=== PATIENT | male | born 1960 | race Caucasian/White ===

== ENCOUNTER → 2018-12-24 | Outpatient (CLI) | payer OTHER, MEDICARE | END | disposition home or self-care (01) | LOC: LABWHC1 12:18 | DX: B18.2 Chronic viral hepatitis C (principal) | CPT/HCPCS: 36415 ==

== ENCOUNTER → 2019-03-28 | Outpatient (CLI) | payer OTHER, MEDICARE ==
[2019-03-28 12:23] LABS: Basophils % (A) 0 %; Eosinophils # (A) 0.1 k/uL (0-0.7); Eosinophils % (A) 1 %; HCT 40.3 % (39.0-53.0); HGB 14.5 gm/dL (13.0-17.5); Lymphocytes # (A) 0.8 k/uL (1.0-4.8); Lymphocytes % (A) 15 %; MCH 33.6 pg (25.0-35.0); MCHC 35.9 g/dL (31.0-37.0); MCV 93.8 fL (80.0-100.0); Mean Platelet Volume 7.4; Monocytes # (A) 0.3 k/uL (0-1.0); Monocytes % (A) 6 %; Neutrophils # (A) 4.1 k/uL (1.3-7.7); Neutrophils % (A) 76 %; Platelet Count 103 k/uL (150-450); RDW 14.2 % (11.5-15.5); WBC 5.4 k/uL (3.8-10.6)
[2019-03-28 18:48] LABS: Albumin 4.3 g/dL (3.80-4.90); Albumin/Globulin Ratio 1.26 (1.60-3.17); Bilirubin, Conjugated 0.4 mg/dL (0.20-0.40); Bilirubin,Unconjugated 0.6 mg/dL; Globulin 3.4 g/dL (1.6-3.3); Total Protein 7.7 g/dL (6.2-8.2)
[2019-03-31 10:21] LABS: LOG HCV IU/mL 1.43 (<1.08)
== END | disposition home or self-care (01) ==
LOC: LABWHC1 11:16
PROVIDERS: ATTEND Physician Assistant
DX: B18.2 Chronic viral hepatitis C (principal)
CPT/HCPCS: 36415; 80076; 85025; 87522

== ENCOUNTER → 2019-04-24 | Outpatient (CLI) | payer OTHER, MEDICARE ==
[2019-04-24 11:23] LABS: Basophils % (A) 0 %; Eosinophils # (A) 0.1 k/uL (0-0.7); Eosinophils % (A) 1 %; HCT 46.4 % (39.0-53.0); HGB 16.1 gm/dL (13.0-17.5); Lymphocytes # (A) 0.8 k/uL (1.0-4.8); Lymphocytes % (A) 15 %; MCH 32.5 pg (25.0-35.0); MCHC 34.7 g/dL (31.0-37.0); MCV 93.7 fL (80.0-100.0); Mean Platelet Volume 6.8; Monocytes # (A) 0.4 k/uL (0-1.0); Monocytes % (A) 7 %; Neutrophils % (A) 75 %; Platelet Count 108 k/uL (150-450); RBC 4.96 m/uL (4.30-5.90); RDW 12.5 % (11.5-15.5); WBC 5.4 k/uL (3.8-10.6)
[2019-04-24 16:59] LABS: Albumin 4.5 g/dL (3.80-4.90); Albumin/Globulin Ratio 1.22 (1.60-3.17); Bilirubin, Conjugated 0.3 mg/dL (0.20-0.40); Bilirubin,Unconjugated 0.6 mg/dL; Globulin 3.7 g/dL (1.6-3.3); Total Bilirubin 0.9 mg/dL (0.2-1.2); Total Protein 8.2 g/dL (6.2-8.2)
[2019-04-25 14:05] LABS: LOG HCV IU/mL <1.08 (<1.08)
== END | disposition home or self-care (01) ==
LOC: LABWHC1 10:25
PROVIDERS: ATTEND Physician Assistant
DX: B18.2 Chronic viral hepatitis C (principal)
CPT/HCPCS: 36415; 80076; 85025; 87522

== ENCOUNTER → 2019-06-19 | Outpatient (CLI) | payer OTHER, MEDICARE ==
[2019-06-19 14:27] LABS: Basophils % (A) 0 %; Eosinophils % (A) 1 %; HGB 14.2 gm/dL (13.0-17.5); Lymphocytes # (A) 0.9 k/uL (1.0-4.8); Lymphocytes % (A) 21 %; MCH 33.9 pg (25.0-35.0); MCHC 36.4 g/dL (31.0-37.0); Mean Platelet Volume 6.7; Monocytes # (A) 0.2 k/uL (0-1.0); Monocytes % (A) 5 %; Neutrophils # (A) 3.2 k/uL (1.3-7.7); Neutrophils % (A) 72 %; RBC 4.19 m/uL (4.30-5.90); RDW 12.4 % (11.5-15.5); WBC 4.4 k/uL (3.8-10.6)
[2019-06-19 14:42] LABS: Platelet Count 83 k/uL (150-450)
[2019-06-19 18:55] LABS: Albumin 4.4 g/dL (3.80-4.90); Albumin/Globulin Ratio 1.29 (1.60-3.17); Bilirubin, Conjugated 0.4 mg/dL (0.20-0.40); Bilirubin,Unconjugated 0.5 mg/dL; Globulin 3.4 g/dL (1.6-3.3); Total Bilirubin 0.9 mg/dL (0.2-1.2); Total Protein 7.8 g/dL (6.2-8.2)
[2019-06-20 15:49] LABS: Hepatits C Virus RNA Not detected (Not detected); Hepatits C Virus RNA, Quant <12 IU/mL (<12); LOG HCV IU/mL <1.08 (<1.08)
== END | disposition home or self-care (01) ==
LOC: LABWHC1 12:43
PROVIDERS: ATTEND Physician Assistant
DX: B18.2 Chronic viral hepatitis C (principal)
CPT/HCPCS: 36415; 80076; 85025; 87522

== ENCOUNTER → 2019-08-08 | Outpatient (CLI) | payer OTHER, MEDICARE ==
--- NOTE | 2019-08-08 16:58 | CT ---
EXAMINATION TYPE: CT abdomen wo/w con DATE OF EXAM: 08/08/2019 COMPARISON: None INDICATION: Liver disease. DLP: 513.2 mGycm, Automated exposure control for dose reduction was used. CONTRAST: 100ml mL of Isovue 300. Study performed with Oral Contrast TECHNIQUE: Axial images were obtained from above the diaphragm to the pubic rami in the axial plane a t 5 mm thick sections. Reconstructed images are reviewed on the computer in the coronal plane. FINDINGS: Limited CT sections are obtained the lung bases. The lung bases are clear. CT ABDOMEN: Liver: Normal Spleen: Enlarged measuring 20 cm. Pancreas: Normal Adrenal glands: The adrenal glands are normal. Gallbladder: Normal Kidneys: No masses are evident. No hydronephrosis is present. No cysts are present. Delayed images were obtained through the kidneys, which remain unremarkable. Aorta: Dense Vascular calcification is within the aorta. Inferior vena cava: Normal. Loops of bowel within the abdomen and pelvis are normal. There are loops of bowel which are incom pletely distended or lack oral contrast limiting their evaluation. IMPRESSIONS: 1. Marked splenomegaly.
[2019-08-08 17:54] LABS: Albumin 4.7 g/dL (3.5-5.0); Bilirubin, Delta 0.4 mg/dL (0.0-0.2); Bilirubin,Unconjugated 0.8 mg/dL (0.0-1.1); Total Bilirubin 1.2 mg/dL (0.2-1.3); Total Protein 9.1 g/dL (6.3-8.2)
[2019-08-08 18:06] LABS: Prothrombin Time 10.7 sec (9.0-12.0)
[2019-08-08 18:08] LABS: Basophils % (A) 0 %; Eosinophils % (A) 1 %; HCT 42.8 % (39.0-53.0); HGB 15.6 gm/dL (13.0-17.5); Lymphocytes # (A) 0.8 k/uL (1.0-4.8); Lymphocytes % (A) 17 %; MCH 33.3 pg (25.0-35.0); MCHC 36.5 g/dL (31.0-37.0); MCV 91.3 fL (80.0-100.0); Mean Platelet Volume 8.2; Monocytes # (A) 0.3 k/uL (0-1.0); Monocytes % (A) 7 %; Neutrophils # (A) 3.7 k/uL (1.3-7.7); Neutrophils % (A) 75 %; RBC 4.69 m/uL (4.30-5.90); RDW 12.1 % (11.5-15.5)
[2019-08-08 18:49] LABS: Platelet Count 88 k/uL (150-450)
[2019-08-08 23:38] LABS: Alpha Fetoprotein, Tumor Mkr 11.8 ng/mL (0.0-7.9)
[2019-08-09 01:44] LABS: Hepatitis A Antibody IgM Non-Reactive (Non-Reactive); Hepatitis B Core IgM Non-Reactive (Non-Reactive); Hepatitis B Surface Antigen Non-Reactive (Non-Reactive); Hepatitis C IgG Antibody Reactive (Non-Reactive)
== END | disposition home or self-care (01) ==
LOC: RADCTMAIN 14:16
PROVIDERS: ATTEND Internal Medicine Gastroenterology
DX: R16.1 Splenomegaly, not elsewhere classified (principal)
CPT/HCPCS: 87522; 80076; 80074; 85025; 85610; 82105; 74170; 36415; Q9967

== ENCOUNTER 2019-09-15 10:09 | Day surgery (SDC) | payer OTHER, MEDICARE ==
[2019-09-12 14:25] VITALS: BMI 20.3
[2019-09-15] MEDS ORDERED: LACTATED RINGERS 1,000 ML IV ONE (10:45)
[2019-09-15] MEDS ORDERED: LIDOCAINE 1% 20 ML VIAL (10MG/ML) FOR IV START INTRADERMA ONE (10:45)
[2019-09-15 10:50] VITALS: TEMP 97.7
[2019-09-15] MEDS ORDERED: LIDOCAINE 1% INJ 10MG/ML (20 ML MDV) ONE (11:46)
[2019-09-15] MEDS ORDERED: PROPOFOL 10 MG/ML 20 ML VIAL IV ONE (11:46)
--- NOTE | 2019-09-15 12:34 | P.PCN ---
Date of Procedure: 09/15/19 Description of Procedure: Brief history: Patient is a pleasant scheduled for an elective upper endoscopy as well as colonoscopy as a part of evaluation of cirrhosis to rule out varices and for screening for malignant neoplasm of the colon. Denies any prior history of esophageal varices, upper GI bleeds, decompensation with ascites or encephalopathy. Last colonoscopy for screening purposes at the age of 48 was normal per his recollection. Procedure performed: Esophagogastroduodenoscopy with biopsies Colonoscopy with polypectomy Estimated blood loss: Minimal. Preoperative diagnosis: Cirrhosis, screening for malignant neoplasm of the colon, last colonoscopy at 48 Anesthesia: [facility] [place] Procedure: After informed consent was obtained from the patient was brought into the endoscopy unit and IV sedation was administered by anesthesia under continuous monitoring. Initially upper endoscopy was done. The Olympus GF 190 video endoscope was inserted into the mouth and esophagus intubated without any difficulty and was gradually advanced into the stomach and duodenum and carefully examined. The bulb and second part of the duodenum appeared normal, With biopsies taken. The scope was then withdrawn into the stomach adequately insufflated with air and upon careful examination the antrum and body, cardia and fundus appeared normal Was significant for diffuse punctate erythema in the antrum and body suggestive of mild gastritis with biopsies of the antrum and body taken. The scope was then withdrawn into the esophagus. The GE junction was located at 45 cm to the incisors. It appeared regular with no erythema erosions or ulcerations, no varices were noted. Rest of the esophagus appeared normal. Patient tolerated the procedure well. At this time the patient continued to remain sedation. Initial digital rectal examination was normal. Olympus CF 190 video colonoscope was then inserted into the rectum and gradually advanced to the cecum without any difficulty. Careful examination was performed as the scope was gradually being withdrawn. The prep was excellent. The cecum, ascending colon, transverse colon, descending colon, sigmoid colon and rectum appeared normal. small 4 mm cecal polyp removed with cold snare polypectomy. Retroflexion was performed in the rectum and no lesions were noted, low-grade internal hemorrhoids noted. Patient tolerated the procedure well. Impression: 1. Mild gastritis antrum and body, biopsied. Duodenal biopsies. No varices noted. 2. Small cecal polyp removed with cold snare polypectomy. Recommendations: Findings of this examination were discussed with the patient as well as his . Okay to resume diet. Okay to resume medications. Await pathology from biopsies and polypectomy. Would recommend repeat colonoscopy in 5 years for colon polyps pending pathology from polypectomy.
[2019-09-15 12:46] VITALS: BP 121/78; PULSE 73; RESP 16
== END 2019-09-15 13:02 | disposition home or self-care (01) ==
LOC: ORWHC2ENDO 10:09
PROVIDERS: ATTEND Internal Medicine
DX: Z12.11 Encounter for screening for malignant neoplasm of colon (principal); D12.0 Benign neoplasm of cecum; K74.60 Unspecified cirrhosis of liver; K29.50 Unspecified chronic gastritis without bleeding; K64.8 Other hemorrhoids; I99.9 Unspecified disorder of circulatory system; J44.9 Chronic obstructive pulmonary disease, unspecified; Z79.891 Long term (current) use of opiate analgesic; Z79.899 Other long term (current) drug therapy; Z90.49 Acquired absence of other specified parts of digestive tract; Z98.890 Other specified postprocedural states; Z86.19 Personal history of other infectious and parasitic diseases
CPT/HCPCS: 88305; 45385; 43239; J2001; J2704

== ENCOUNTER → 2020-02-20 | Outpatient (CLI) | payer OTHER, MEDICARE ==
[2020-02-20 10:43] LABS: Prothrombin Time 10.1 sec (9.0-12.0)
[2020-02-20 11:14] LABS: Basophils % (A) 0 %; Eosinophils # (A) 0.1 k/uL (0-0.7); Eosinophils % (A) 1 %; HCT 45.2 % (39.0-53.0); HGB 16.4 gm/dL (13.0-17.5); Lymphocytes # (A) 0.9 k/uL (1.0-4.8); Lymphocytes % (A) 15 %; MCH 32.9 pg (25.0-35.0); MCHC 36.3 g/dL (31.0-37.0); MCV 90.6 fL (80.0-100.0); Mean Platelet Volume 7.4; Monocytes # (A) 0.3 k/uL (0-1.0); Monocytes % (A) 4 %; Neutrophils % (A) 79 %; RBC 4.99 m/uL (4.30-5.90); RDW 12.7 % (11.5-15.5); WBC 6.3 k/uL (3.8-10.6)
[2020-02-20 11:22] LABS: Platelet Count 95 k/uL (150-450)
[2020-02-20 15:27] LABS: Alpha Fetoprotein, Tumor Mkr 16.4 ng/mL (0.0-7.9)
[2020-02-20 15:44] LABS: Albumin 4.9 g/dL (3.80-4.90); Albumin/Globulin Ratio 1.26 (1.60-3.17); Bilirubin, Conjugated 0.3 mg/dL (0.20-0.40); Bilirubin,Unconjugated 0.6 mg/dL; Globulin 3.9 g/dL (1.6-3.3); Total Bilirubin 0.9 mg/dL (0.3-1.2); Total Protein 8.8 g/dL (6.2-8.2)
== END | disposition home or self-care (01) ==
LOC: LABWHC1 09:36
PROVIDERS: ATTEND Physician Assistant
DX: B18.2 Chronic viral hepatitis C (principal)
CPT/HCPCS: 36415; 80076; 82105; 85025; 85610; 87522

== ENCOUNTER → 2020-04-08 | Outpatient (CLI) | payer OTHER, MEDICARE | END | disposition home or self-care (01) | LOC: LABPAT 11:51 | PROVIDERS: ATTEND Surgery Plastic and Reconstructive Surgery | DX: Z01.810 Encounter for preprocedural cardiovascular examination (principal) | CPT/HCPCS: 93005 ==

== ENCOUNTER 2020-04-26 13:27 | Observation (INO) | payer OTHER, MEDICARE ==
[2020-04-26] MEDS ORDERED: ASPIRIN 81 MG PO STA (13:35)
[2020-04-26] MEDS ORDERED: NITROGLYCERIN OINT 1 INCH/GM PACKET TOPICAL STA (13:35)
--- NOTE | 2020-04-26 13:49 | ED ---
General Adult HPI - General Stated complaint: SOB Time Seen by Provider: 04/26/20 13:27 Source: patient, RN notes reviewed, old records reviewed - History of Present Illness Initial comments: This is a 59-year-old male who presents emergency Department past medical history significant for smoking. Patient states she was recently told he had an abnormal EKG and he did have a stress test. Patient states she woke up this morning he was very lightheaded short of breath and had some chest pain. Patient describes the chest pain is pressure though he said it wasn't that bad he was concerned. Patient states he continued today became more lightheaded so he decided come to the emergency department. Patient states he still short of breath but not as bad as earlier. Patient states currently is not having any chest pain or pressure. Patient denies any recent fever chills or cough per patient denies any headache patient denies numbness weakness. Patient denies any abdominal pain patient denies nausea vomiting or diarrhea. - Related Data Home Medications Medication Instructions Recorded Confirmed Albuterol Inhaler (Mhu) [Ventolin 1 - 2 puff INHALATION RT-Q6H PRN 09/12/19 09/12/19 Hfa Inhaler] Glycopyrrolate/Formoterol Fum 1 puff INHALATION DAILY 09/12/19 09/12/19 [Bevespi Aerosphere Inhaler] Suboxone(Unknown Dose) SL BID 09/12/19 traMADol HCL [Ultram] 50 mg PO HS 09/12/19 09/12/19 Allergies Allergy/AdvReac Type Severity Reaction Status Date / Time No Known Allergies Allergy Verified 09/15/19 10:22 Review of Systems ROS Statement: Those systems with pertinent positive or pertinent negative responses have been documented in the HPI. ROS Other: All systems not noted in ROS Statement are negative. Past Medical History Past Medical History: COPD, Liver Disease, Vascular Disorder Additional Past Medical History / Comment(s): hx. Hep. C considered cured after tx. History of Any Multi-Drug Resistant Organisms: None Reported Past Surgical History: Appendectomy Additional Past Surgical History / Comment(s): colonoscopy, stent right leg for circulation, mediport & later removed Past Anesthesia/Blood Transfusion Reactions: No Reported Reaction Past Alcohol Use History: None Reported Additional Past Alcohol Use History / Comment(s): 1ppd since teens Past Drug Use History: Opiates Additional Drug Use History / Comment(s): medical marijuana General Exam - General Exam Comments Initial Comments: GENERAL: Patient is well-developed and well-nourished. Patient is nontoxic and well- hydrated and is in mild distress. ENT: Neck is soft and supple. No significant lymphadenopathy is noted. Oropharynx is clear. Moist mucous membranes. Neck has full range of motion without eliciting any pain. EYES: The sclera were anicteric and conjunctiva were pink and moist. Extraocular movements were intact and pupils were equal round and reactive to light. Eyelids were unremarkable. PULMONARY: Unlabored respirations. Good breath sounds bilaterally. No audible rales rhonchi or wheezing was noted. CARDIOVASCULAR: There is a regular rate and rhythm without any murmurs gallops or rubs. ABDOMEN: Soft and nontender with normal bowel sounds. SKIN: Skin is clear with no lesions or rashes and otherwise unremarkable. NEUROLOGIC: Patient is alert and oriented x3. Cranial nerves II through XII are grossly intact. Motor and sensory are also intact. Normal speech, volume and content. Symmetrical smile. MUSCULOSKELETAL: Normal extremities with adequate strength and full range of motion. LYMPHATICS: No significant lymphadenopathy is noted PSYCHIATRIC: Normal psychiatric evaluation. Course Vital Signs 04/26/20 04/26/20 13:39 14:43 Temperature 99.4 F Pulse Rate 52 L 71 Respiratory 18 18 Rate Blood Pressure 152/78 179/100 O2 Sat by Pulse 97 99 Oximetry Medical Decision Making - Medical Decision Making EKG shows sinus bradycardia 53 bpm VT interval 250 QRS is 90 QT of 416 QTC is 3 90. Patient's EKG shows Q waves in 1 and aVL. Chest x-ray shows no acute abnormality. I spoke with Dr. Murguia agreed to admit the patient admitted the patient I consult cardiology I continue aspirin and Nitropaste on the floor. - Lab Data Result diagrams: 04/26/20 13:48 04/26/20 13:48 Lab Results 04/26/20 04/26/20 04/26/20 Range/Units 13:48 13:48 13:48 WBC 10.7 H (3.8-10.6) k/uL RBC 4.65 (4.30-5.90) m/uL Hgb 14.8 (13.0-17.5) gm/dL Hct 41.1 (39.0-53.0) % MCV 88.4 (80.0-100.0) fL MCH 31.9 (25.0-35.0) pg MCHC 36.1 (31.0-37.0) g/dL RDW 12.6 (11.5-15.5) % Plt Count 108 L (150-450) k/uL Neutrophils % 89 % Lymphocytes % 5 % Monocytes % 5 % Eosinophils % 1 % Basophils % 0 % Neutrophils # 9.5 H (1.3-7.7) k/uL Lymphocytes # 0.5 L (1.0-4.8) k/uL Monocytes # 0.5 (0-1.0) k/uL Eosinophils # 0.1 (0-0.7) k/uL Basophils # 0.0 (0-0.2) k/uL PT 10.4 (9.0-12.0) sec INR 1.0 (<1.2) APTT 26.3 (22.0-30.0) sec Sodium 136 L (137-145) mmol/L Potassium 4.2 (3.5-5.1) mmol/L Chloride 104 (98-107) mmol/L Carbon Dioxide 25 (22-30) mmol/L Anion Gap 7 mmol/L BUN 11 (9-20) mg/dL Creatinine 0.60 L (0.66-1.25) mg/dL Est GFR (CKD-EPI)AfAm >90 (>60 ml/min/1.73 sqM) Est GFR (CKD-EPI)NonAf >90 (>60 ml/min/1.73 sqM) Glucose 110 H (74-99) mg/dL Calcium 9.2 (8.4-10.2) mg/dL Magnesium 2.0 (1.6-2.3) mg/dL Total Bilirubin 1.3 (0.2-1.3) mg/dL AST 43 (17-59) U/L ALT 21 (4-49) U/L Alkaline Phosphatase 120 (38-126) U/L Troponin I (0.000-0.034) ng/mL Total Protein 8.3 H (6.3-8.2) g/dL Albumin 4.6 (3.5-5.0) g/dL 04/26/20 Range/Units 13:48 WBC (3.8-10.6) k/uL RBC (4.30-5.90) m/uL Hgb (13.0-17.5) gm/dL Hct (39.0-53.0) % MCV (80.0-100.0) fL MCH (25.0-35.0) pg MCHC (31.0-37.0) g/dL RDW (11.5-15.5) % Plt Count (150-450) k/uL Neutrophils % % Lymphocytes % % Monocytes % % Eosinophils % % Basophils % % Neutrophils # (1.3-7.7) k/uL Lymphocytes # (1.0-4.8) k/uL Monocytes # (0-1.0) k/uL Eosinophils # (0-0.7) k/uL Basophils # (0-0.2) k/uL PT (9.0-12.0) sec INR (<1.2) APTT (22.0-30.0) sec Sodium (137-145) mmol/L Potassium (3.5-5.1) mmol/L Chloride (98-107) mmol/L Carbon Dioxide (22-30) mmol/L Anion Gap mmol/L BUN (9-20) mg/dL Creatinine (0.66-1.25) mg/dL Est GFR (CKD-EPI)AfAm (>60 ml/min/1.73 sqM) Est GFR (CKD-EPI)NonAf (>60 ml/min/1.73 sqM) Glucose (74-99) mg/dL Calcium (8.4-10.2) mg/dL Magnesium (1.6-2.3) mg/dL Total Bilirubin (0.2-1.3) mg/dL AST (17-59) U/L ALT (4-49) U/L Alkaline Phosphatase (38-126) U/L Troponin I 0.016 (0.000-0.034) ng/mL Total Protein (6.3-8.2) g/dL Albumin (3.5-5.0) g/dL Disposition Clinical Impression: Chest pain Disposition: ADMITTED IP TO THIS [facility] Referrals: Deandre Thomas MD [Primary Care Provider] - 1-2 days Time of Disposition: 15:28
--- NOTE | 2020-04-26 14:10 | XR ---
EXAMINATION TYPE: XR chest 2V DATE OF EXAM: 04/26/2020 COMPARISON: Prior chest x-ray 10/12/[address] 10/21/2009 HISTORY: Chest pain TECHNIQUE: Frontal and lateral views of the chest are obtained. FINDINGS: There are prominent lung volumes and overlying cardiac leads. There is no focal air space o pacity, pleural effusion, or pneumothorax seen. The cardiac silhouette size is small. The osseous structures are intact, possible spinal curvature, patient is rotated. IMPRESSION: No acute cardiopulmonary process. There is underlying emphysema.
[2020-04-26 14:13] LABS: Partial Thromboplastin Time 26.3 sec (22.0-30.0); Prothrombin Time 10.4 sec (9.0-12.0)
[2020-04-26 14:17] LABS: Basophils % (A) 0 %; Eosinophils # (A) 0.1 k/uL (0-0.7); Eosinophils % (A) 1 %; HCT 41.1 % (39.0-53.0); HGB 14.8 gm/dL (13.0-17.5); Lymphocytes # (A) 0.5 k/uL (1.0-4.8); Lymphocytes % (A) 5 %; MCH 31.9 pg (25.0-35.0); MCHC 36.1 g/dL (31.0-37.0); MCV 88.4 fL (80.0-100.0); Mean Platelet Volume 7.3; Monocytes # (A) 0.5 k/uL (0-1.0); Monocytes % (A) 5 %; Neutrophils # (A) 9.5 k/uL (1.3-7.7); Neutrophils % (A) 89 %; Platelet Count 108 k/uL (150-450); RBC 4.65 m/uL (4.30-5.90); RDW 12.6 % (11.5-15.5); WBC 10.7 k/uL (3.8-10.6)
[2020-04-26 14:21] LABS: ALT 21 U/L (4-49); AST 43 U/L (17-59); African American GFR (CKD) >90 (>60 ml/min/1.73 sqM); Albumin 4.6 g/dL (3.5-5.0); Alkaline Phosphatase 120 U/L (38-126); Anion Gap 7 mmol/L; Blood Urea Nitrogen 11 mg/dL (9-20); Calcium 9.2 mg/dL (8.4-10.2); Carbon Dioxide 25 mmol/L (22-30); Chloride 104 mmol/L (98-107); Glucose 110 mg/dL (74-99); Non-African American GFR(CKD) >90 (>60 ml/min/1.73 sqM); Sodium 136 mmol/L (137-145); Total Bilirubin 1.3 mg/dL (0.2-1.3); Total Protein 8.3 g/dL (6.3-8.2)
[2020-04-26 14:28] LABS: Potassium 4.2 mmol/L (3.5-5.1)
[2020-04-26] MEDS ORDERED: NITROGLYCERIN SL TABS 0.4 MG TAB SUBLINGUAL PRN (15:32)
[2020-04-26] MEDS ORDERED: ACETAMINOPHEN TAB 500 MG TAB PO STA (15:41)
[2020-04-26] MEDS ORDERED: NA PHOS,M-B/NA PHOS,DI-BA 133 ML ENEMA RECTAL PRN (18:32)
[2020-04-26] MEDS ORDERED: ONDANSETRON 4 MG/2 ML VIAL IVP PRN (18:32)
[2020-04-26] MEDS ORDERED: MELATONIN 3 MG TABLET PO PRN (18:32)
[2020-04-26] MEDS ORDERED: ACETAMINOPHEN TAB 325 MG TAB PO PRN (18:32)
[2020-04-26] MEDS ORDERED: NALOXONE 0.4 MG/ML 1 ML VIAL IV PRN (18:32)
[2020-04-26] MEDS ORDERED: CALCIUM CARBONATE 500 MG CHEWABLE PO PRN (18:32)
[2020-04-26] MEDS ORDERED: MAG HYDROX/AL HYDROX/SIMETH 30 ML CUP PO PRN (18:32)
[2020-04-26] MEDS ORDERED: LACTULOSE 20 GM/30 ML CUP PO PRN (18:32)
--- NOTE | 2020-04-26 18:49 | P.HPIM ---
History of Present Illness H&P Date: 04/26/20 Chief Complaint: Short of breath History of presenting complaint: This is a 59-year-old patient follows with Dr. rubio to [place]. For last few days having increasingly short of breath. Dizzy, feeling hot and cold. No fevers.. Questionable chest pain. No fever no chills. No cough. Some wheezing. Patient just started seeing a forestry extension specialist and was given a beta naun. Patient due for a stress test in due course. Patient has continued to smoke. 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 Patient was seen by the local forestry extension specialist as a preoperative clearance for left inguinal hernia repair. Pending. Patient's at the bedside. Admitted with unstable angina. Review of systems: GEN.: Tired EYES: None HEENT: None NECK: None RESPIRATORY: Shortness of breath and wheezing CARDIOVASCULAR: As above, no edema GASTROINTESTINAL: None GENITOURINARY: None MUSCULOSKELETAL: None LYMPHATICS: None HEMATOLOGICAL: None PSYCHIATRY: None DERMATOLOGICAL: Skin changes right side of the face right arm NEUROLOGICAL: None Past medical history to include: COPD, hepatitis C treated and cured, peripheral artery disease, left inguinal hernia, psoriasis,porphyria cutanea tarda. 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 Denies any recreational drugs. Physical examination: VITAL SIGNS: 99.4, 52, 18, 152/78, 97% on 2 L GENERAL: BMI 21.6, sitting up in bed, slightly anxious. EYES: Pupils equal. Conjunctiva normal. HEENT: Patient has chronic skin changes on the right side of the face. NECK: JVD not raised; masses not palpable. HEART: First and second heart sounds are normal; no edema. LUNGS: Respiratory rate increased, diminished breath sounds prolonged expiration. ABDOMEN: Soft, nontender, liver spleen not palpable, no masses palpable. PSYCH: Alert and oriented x3; mood and affect normal. NEUROLOGICAL: Cranial nerves grossly intact; no facial asymmetry, power and sensation grossly intact. EXTREMITIES: Chronic skin changes on the back of the right hand LYMPHATICS: No lymph nodes palpable in the axilla and neck INVESTIGATIONS, reviewed in the clinical context: White count 10.7 hemoglobin 14.8 platelets 108 potassium 4.2 creatinine 0.60 line troponin I 0.016, 0.029 EKG tracing personally reviewed by me-normal sinus rhythm, flipped T waves in lead 1 aVL and some nonspecific changes in V1 and V2 Chest x-ray film personally reviewed by me-hyperinflation prominent pulmonary artery tubular heart Assessment: -Patient is on multiple symptoms. Patient has though cardiac risk factors including smoking, hypertension, peripheral artery disease. Patient's had questionable chest pain. Would consider unstable angina and rule out the same. -Acute COPD exacerbation in a current smoker -Suspect underlying secondary pulmonary hypertension will check a 2-D echocardiogram -Peripheral arterial disease with a stent in the right leg previously -Chronic nicotine dependence cigarette smoker -porphyria cutanea tarda -Left inguinal hernia pending surgical repair Plan: Patient with aspirin, Nitropaste. Home medications resumed. Patient also put on nebulized bronchodilators. Also had in his steroids. Care was discussed with the patient and at the bedside. Cardiology consulted. Smoke cessation counseling: This was done with the patient. Nicotine patch is being given. More than 3 minutes was spent for this Past Medical History Past Medical History: COPD, Liver Disease, Vascular Disorder Additional Past Medical History / Comment(s): Hepatitis C-treated/cured, skin condition ?purpura with chronic pain especially involving face, PAD, benign cecal polyps, L inguinal hernia. History of Any Multi-Drug Resistant Organisms: None Reported Past Surgical History: Appendectomy Additional Past Surgical History / Comment(s): EGD, colonoscopy, stent right leg for circulation, mediport & later removed Past Anesthesia/Blood Transfusion Reactions: No Reported Reaction Smoking Status: Current every day smoker - Past Family History Father Family Medical History: Cancer Additional Family Medical History / Comment(s): Father of pancreatic cancer at the age of 78yrs. Mother Family Medical History: Renal Disease Medications and Allergies Home Medications Medication Instructions Recorded Confirmed Type Glycopyrrolate/Formoterol Fum 1 puff INHALATION DAILY 09/12/19 04/26/20 History [Bevespi Aerosphere Inhaler] traMADol HCL [Ultram] 100 mg PO BID 09/12/19 04/26/20 History Albuterol Inhaler [Ventolin Hfa 2 puff INHALATION RT-QID 04/26/20 04/26/20 History Inhaler] Aspirin [Page Aspirin EC] 81 mg PO DAILY 04/26/20 04/26/20 History Atorvastatin [Lipitor] 80 mg PO DAILY 04/26/20 04/26/20 History Buprenorphine HCl/Naloxone HCl 1 film SL BID 04/26/20 04/26/20 History [Buprenorp-Nalox 8-2 mg Sl Film] Metoprolol Succinate [Toprol XL] 50 mg PO DAILY 04/26/20 04/26/20 History Nitroglycerin 0.4 mg SL Q5M PRN 04/26/20 04/26/20 History Allergies Allergy/AdvReac Type Severity Reaction Status Date / Time No Known Allergies Allergy Verified 04/26/20 16:17 Physical Exam Vitals: Vital Signs Temp Pulse Resp BP Pulse Ox 04/26/20 16:16 69 18 150/97 98 04/26/20 15:00 75 18 160/93 99 04/26/20 14:43 71 18 179/100 99 04/26/20 13:39 99.4 F 52 L 18 152/78 97 Intake and Output 04/26/20 04/26/20 04/26/20 06:59 14:59 22:59 Other: Weight 66.224 kg 66.224 kg Results CBC & Chem 7: 04/26/20 13:48 04/26/20 13:48 Labs: Abnormal Lab Results - Last 24 Hours (Table) 04/26/20 04/26/20 Range/Units 13:48 13:48 WBC 10.7 H (3.8-10.6) k/uL Plt Count 108 L (150-450) k/uL Neutrophils # 9.5 H (1.3-7.7) k/uL Lymphocytes # 0.5 L (1.0-4.8) k/uL Sodium 136 L (137-145) mmol/L Creatinine 0.60 L (0.66-1.25) mg/dL Glucose 110 H (74-99) mg/dL Total Protein 8.3 H (6.3-8.2) g/dL Thrombosis Risk Factor Assmnt - Choose All That Apply Any of the Below Risk Factors Present?: Yes Each Factor Represents 1 point: Abnormal pulmonary function (COPD) Other Risk Factors: Yes Each Risk Factor Represents 2 Points: Age 61-74 years Other congenital or acquired thrombophilia - If yes, enter type in comment: No Thrombosis Risk Factor Assessment Total Risk Factor Score: 3 Thrombosis Risk Factor Assessment Level: Moderate Risk
[2020-04-26] MEDS: IPRATROPIUM-ALBUTEROL 3 ML NEB INHALATION SCH (19:12)
[2020-04-26] MEDS: NICOTINE 21MG/24HR PATCH TRANSDERM SCH (19:31)
[2020-04-26] MEDS: traMADol 50 MG TAB PO SCH (19:31)
[2020-04-26] MEDS: NITROGLYCERIN OINT 1 INCH/GM PACKET TOPICAL SCH (19:32)
[2020-04-26] MEDS: [UNRECOGNIZED DRUG - OTHER] SUBLINGUAL SCH (19:32)
[2020-04-26] MEDS: BUPRENORPHINE HCL SUBLINGUAL SCH (19:32)
[2020-04-26] MEDS: NALOXONE HCL SUBLINGUAL SCH (19:32)
[2020-04-26] MEDS ORDERED: ALBUTEROL NEBULIZED 2.5 MG/3 ML INHALATION SCH (20:00)
[2020-04-27] MEDS: NITROGLYCERIN OINT 1 INCH/GM PACKET TOPICAL SCH ×3 (00:54→14:10)
[2020-04-27 06:44] LABS: Cholesterol 134 mg/dL (<200); HDL Cholesterol 52 mg/dL (40-60); LDL Cholesterol,Calculated 66 mg/dL (0-99); Triglycerides 81 mg/dL (<150)
[2020-04-27] MEDS ORDERED: FORMOTEROL FUMARATE 20 MCG/2 ML NEBU INHALATION SCH (08:00)
[2020-04-27] MEDS: traMADol 50 MG TAB PO SCH (08:15)
[2020-04-27] MEDS: NICOTINE 21MG/24HR PATCH TRANSDERM SCH (08:17)
[2020-04-27] MEDS ORDERED: ASPIRIN 325 MG TAB PO STA (08:52)
[2020-04-27] MEDS ORDERED: ALPRAZolam 0.5 MG TAB PO PRN (08:52)
[2020-04-27] MEDS ORDERED: SODIUM CHLORIDE 0.9% 1,000 ML in EMPTY BAG 1 BAG IV ONE (08:52)
[2020-04-27] MEDS ORDERED: ALPRAZolam 0.25 MG TAB PO PRN (08:52)
[2020-04-27] MEDS ORDERED: ATORVASTATIN 80 MG TAB PO STA (08:52)
[2020-04-27] MEDS ORDERED: NITROGLYCERIN SL TABS 0.4 MG TAB SUBLINGUAL PRN (08:52)
[2020-04-27] MEDS ORDERED: METOPROLOL SUCCINATE (ER) 50 MG TAB.ER.24H PO SCH (09:00)
[2020-04-27] MEDS ORDERED: ASPIRIN 325 MG TAB PO SCH (09:00)
[2020-04-27] MEDS ORDERED: ATORVASTATIN 80 MG TAB PO SCH (09:00)
[2020-04-27] MEDS ORDERED: ASPIRIN 81 MG PO SCH (09:00)
[2020-04-27] MEDS: IPRATROPIUM 0.5 MG/2.5 ML NEBU INHALATION SCH ×3 (09:04→16:12)
[2020-04-27] MEDS: IPRATROPIUM-ALBUTEROL 3 ML NEB INHALATION SCH ×3 (09:04→16:11)
[2020-04-27 09:32] LABS: Glucose,Whole Blood 124 mg/dL (75-99)
--- NOTE | 2020-04-27 10:41 | P.CRDCN ---
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 Patient had recently been seen by myself approximately one week ago where he was being evaluated for preoperative clearance. He has however been fairly symptomatic over the prior 3 weeks with new onset of dyspnea on exertion with only moderate activity which would improve with rest. He did have some associated chest pressure along with this if he would push too hard. Denies associated nausea, diaphoresis he does continue to smoke daily. He is i nterested in quitting. He does have scarring of his face and hands related to his porphyria. He denies any claudication symptoms however was stented in his iliac artery 7 years ago at [facility]. He does admit to some associated lightheadedness during these episodes. He was started on an aspirin and a beta naun and recommended for outpatient stress testing however he has been having recurrence of symptoms even at rest concerning for unstable angina. He has been concerned that there is something wrong and therefore presented to the emergency department. No history of hematochezia or melena. DIAGNOSTICS EKG reveals sinus bradycardia with a heart rate of 53, nonspecific T-wave inversions in 1 aVL. Chest xray no acute cardiopulmonary process, underlying emphysema. Laboratory reviewed, white blood cell count 10.7, hemoglobin 14.8, platelets 108, sodium 136, creatinine 0.6, troponins negative 3, total cholesterol 134, LDL 66 Current cardiac medications include aspirin 81 mg daily, Toprol 50 mg daily, nitroglycerin when necessary. REVIEW OF SYSTEMS At the time of my exam: CONSTITUTIONAL: Denies fever or chills. CARDIOVASCULAR: +chest pain, +shortness of breath, no orthopnea, PND, +palpitations. RESPIRATORY: Denies cough. GASTROINTESTINAL: Denies abdominal pain, diarrhea, constipation, nausea or vomiting. MUSCULOSKELETAL: Denies myalgias. NEUROLOGIC: Denies numbness, tingling or weakness. ENDOCRINE: Denies fatigue, weight change, polydipsia or polyurina. GENITOURINARY: Denies burning, hematuria or urgency with micturation. HEMATOLOGIC: Denies history of anemia or bleeding. PHYSICAL EXAMINATION Blood pressure 145/88 heart rate 97 afebrile and maintaining oxygen saturation on room air. CONSTITUTIONAL: No apparent distress, diffuse rash with scarring of his face and upper extremities related to his porphyria HEENT: Head is normocephalic. Pupils are equal, round. Sclerae anicteric. Mucous membranes of the mouth are moist. No JVD. No carotid bruit. CHEST EXAMINATION: Lungs are clear to auscultation. No chest wall tenderness is noted on palpation or with deep breathing. HEART EXAMINATION: Regular rate and rhythm. S1, S2 heard. No murmurs, gallops or rub. ABDOMEN: Soft, nontender. Positive bowel sounds. EXTREMITIES: 2+ peripheral pulses, no lower extremity edema and no calf tenderness. NEUROLOGIC EXAMINATION: Patient is awake, alert and oriented x3. ASSESSMENT 1. Increasing dyspnea on exertion and chest pain with significant risk factors including PAD and tobacco abuse. Patient failed outpatient management and discussed options of stress testing versus heart catheterization. Patient very concerned by his symptoms and would like to undergo heart catheterization. 2. Tobacco abuse 3. Peripheral arterial disease with history of stenting of his right common iliac in 2007 at [facility], no current claudication symptoms 4. Essential hypertension with Toprol recently added 5. Sinus bradycardia, possibly related to Toprol, appears asymptomatic 6. Palpitations intermittently PLAN Patient does have multiple risk factors and symptoms worse with activity, improves with rest and somewhat improved after starting Toprol. He also has multiple risk factors including PAD and tobacco abuse area discussed options of heart catheterization versus stress testing and patient would like to undergo heart catheterization. Discussed risks of procedure including bleeding, infection, heart attack, stroke or and patient is understanding and would like to move ahead with this. We will attempt to have this performed today. We will check an echocardiogram to evaluate for LV function and diastology, rule out significant valvular heart disease. Advised tobacco cessation. More recommendations to follow. Past Medical History Past Medical History: COPD, Liver Disease, Vascular Disorder Additional Past Medical History / Comment(s): Hepatitis C-treated/cured, skin condition ?purpura with chronic pain especially involving face, PAD, benign cecal polyps, L inguinal hernia. History of Any Multi-Drug Resistant Organisms: None Reported Past Surgical History: Appendectomy Additional Past Surgical History / Comment(s): EGD, colonoscopy, stent right leg for circulation, mediport & later removed Past Anesthesia/Blood Transfusion Reactions: No Reported Reaction Smoking Status: Current every day smoker - Past Family History Father Family Medical History: Cancer Additional Family Medical History / Comment(s): Father of pancreatic cancer at the age of 78yrs. Mother Family Medical History: Renal Disease Medications and Allergies Home Medications Medication Instructions Recorded Confirmed Type Glycopyrrolate/Formoterol Fum 1 puff INHALATION DAILY 09/12/19 04/26/20 History [Bevespi Aerosphere Inhaler] traMADol HCL [Ultram] 100 mg PO BID 09/12/19 04/26/20 History Albuterol Inhaler [Ventolin Hfa 2 puff INHALATION RT-QID 04/26/20 04/26/20 History Inhaler] Aspirin [Long Aspirin EC] 81 mg PO DAILY 04/26/20 04/26/20 History Atorvastatin [Lipitor] 80 mg PO DAILY 04/26/20 04/26/20 History Buprenorphine HCl/Naloxone HCl 1 film SL BID 04/26/20 04/26/20 History [Buprenorp-Nalox 8-2 mg Sl Film] Metoprolol Succinate [Toprol XL] 50 mg PO DAILY 04/26/20 04/26/20 History Nitroglycerin 0.4 mg SL Q5M PRN 04/26/20 04/26/20 History Allergies Allergy/AdvReac Type Severity Reaction Status Date / Time No Known Allergies Allergy Verified 04/26/20 16:17 Physical Exam Vitals: Vital Signs Temp Pulse Pulse Resp BP BP Pulse Ox 04/27/20 09:18 60 04/27/20 09:04 60 04/27/20 08:19 98.1 F 97 16 145/88 97 04/27/20 03:00 97.9 F 68 18 123/70 96 04/26/20 21:00 97.7 F 60 18 159/71 95 04/26/20 19:20 59 L 04/26/20 19:12 56 L 97 04/26/20 16:16 69 18 150/97 98 04/26/20 15:00 75 18 160/93 99 04/26/20 14:43 71 18 179/100 99 04/26/20 13:39 99.4 F 52 L 18 152/78 97 Intake and Output 04/26/20 04/27/20 04/27/20 22:59 06:59 14:59 Intake Total 450 Balance 450 Intake: Oral 450 Other: Voiding Method Toilet Toilet Toilet # Voids 1 Weight 66.224 kg Results 04/26/20 13:48 04/26/20 13:48 Cardiac Enzymes 04/26/20 04/26/20 04/26/20 Range/Units 13:48 13:48 16:40 AST 43 (17-59) U/L Troponin I 0.016 0.029 (0.000-0.034) ng/mL 04/26/20 Range/Units 19:10 AST (17-59) U/L Troponin I 0.012 (0.000-0.034) ng/mL Coagulation 04/26/20 Range/Units 13:48 PT 10.4 (9.0-12.0) sec APTT 26.3 (22.0-30.0) sec Lipids 04/27/20 Range/Units 05:51 Triglycerides 81 (<150) mg/dL Cholesterol 134 (<200) mg/dL HDL Cholesterol 52 (40-60) mg/dL CBC 04/26/20 Range/Units 13:48 WBC 10.7 H (3.8-10.6) k/uL RBC 4.65 (4.30-5.90) m/uL Hgb 14.8 (13.0-17.5) gm/dL Hct 41.1 (39.0-53.0) % Plt Count 108 L (150-450) k/uL Comprehensive Metabolic Panel 04/26/20 Range/Units 13:48 Sodium 136 L (137-145) mmol/L Potassium 4.2 (3.5-5.1) mmol/L Chloride 104 (98-107) mmol/L Carbon Dioxide 25 (22-30) mmol/L BUN 11 (9-20) mg/dL Creatinine 0.60 L (0.66-1.25) mg/dL Glucose 110 H (74-99) mg/dL Calcium 9.2 (8.4-10.2) mg/dL AST 43 (17-59) U/L ALT 21 (4-49) U/L Alkaline Phosphatase 120 (38-126) U/L Total Protein 8.3 H (6.3-8.2) g/dL Albumin 4.6 (3.5-5.0) g/dL Current Medications Generic Name Dose Route Start Last Admin Trade Name Freq PRN Reason Stop Dose Admin Acetaminophen 650 mg 04/26/20 18:32 Tylenol Tab PO Q6HR PRN Mild Pain or Fever > 100.5 Al Hydroxide/Mg Hydroxide 15 ml 04/26/20 18:32 Maalox PO Q6HR PRN Indigestion Albuterol/Ipratropium 3 ml 04/26/20 20:00 04/27/20 09:04 Duoneb 0.5 Mg-3 Mg/3 Ml Soln INHALATION 3 ml RT-QID SHAYY Administration Alprazolam 0.25 mg 04/27/20 08:52 Xanax PO Q6HR PRN Mild Anxiety Alprazolam 0.5 mg 04/27/20 08:52 Xanax PO Q6HR PRN Moderate Anxiety Aspirin 81 mg 04/27/20 09:00 04/27/20 08:15 Aspirin PO 81 mg DAILY SHAYY Administration Atorvastatin Calcium 80 mg 04/27/20 09:00 04/27/20 08:15 Lipitor PO 80 mg DAILY SHAYY Administration Calcium Carbonate/Glycine 1,000 mg 04/26/20 18:32 Tums PO Q4HR PRN Dyspepsia Formoterol Fumarate 20 mcg 04/27/20 08:00 04/27/20 09:03 Perforomist INHALATION 20 mcg RT-BID SHAYY Administration Sodium Chloride 1,000 ml/ IV 1,000 mls @ 66.224 mls/hr 04/27/20 08:52 04/27/20 09:27 Solution IV 04/27/20 23:58 66.224 mls/hr .Q15H7M ONE Administration 1 ML/KG/HR Ipratropium Scribner 0.5 mg 04/27/20 08:00 04/27/20 09:04 Atrovent Nebulized INHALATION Not Given RT-QID [facility] Lactulose 20 gm 04/26/20 18:32 Cephulac PO DAILY PRN Constipation Melatonin 3 mg 04/26/20 18:32 Melatonin PO HS PRN Insomnia Metoprolol Succinate 50 mg 04/27/20 09:00 04/27/20 09:26 Toprol Xl PO 50 mg DAILY SHAYY Administration Naloxone HCl 0.2 mg 04/26/20 18:32 Narcan IV Q2M PRN Opioid Reversal Nicotine 1 patch 04/26/20 18:45 04/27/20 08:17 Habitrol 21mg/24hr Patch TRANSDERM 1 patch DAILY SHAYY Administration Nitroglycerin 0.4 mg 04/26/20 15:32 Nitrostat SUBLINGUAL Q5M PRN Chest Pain Nitroglycerin 1 inch 04/26/20 18:00 04/27/20 06:27 Nitro-Bid Oint TOPICAL Not Given Q6HR [facility] Nitroglycerin 0.4 mg 04/27/20 08:52 Nitrostat SUBLINGUAL Q5M PRN Chest Pain Non-Formulary Medication 1 film 04/26/20 21:00 04/26/20 19:32 Buprenorphine Hcl/Naloxone Hcl [Buprenorp-Nalox 8-2 Mg Sl Film] SUBLINGUAL Not Given BID [facility] Ondansetron HCl 4 mg 04/26/20 18:32 Zofran IVP Q8HR PRN Nausea And Vomiting Sodium Biphosphate/Sodium Phosphate 133 ml 04/26/20 18:32 Fleet Adult RECTAL 05/03/20 18:33 ONCE PRN Constipation Tramadol HCl 100 mg 04/26/20 21:00 04/27/20 08:15 Ultram PO 100 mg BID SHAYY Administration Intake and Output 04/26/20 04/27/20 04/27/20 22:59 06:59 14:59 Intake Total 450 Balance 450 Intake: Oral 450 Other: Voiding Method Toilet Toilet Toilet # Voids 1 Weight 66.224 kg 04/26/20 13:48 04/26/20 13:48
[2020-04-27 12:39] VITALS: PULSE 61
[2020-04-27] MEDS ORDERED: VERAPAMIL 2.5 MG/ML 2 ML AMP ONE (13:38)
[2020-04-27] MEDS ORDERED: LIDOCAINE 1% INJ 10MG/ML (20 ML MDV) ONE (13:38)
[2020-04-27] MEDS ORDERED: HEPARIN SODIUM 1,000 UN/ML (10ML VL) ONE (13:38)
[2020-04-27] MEDS ORDERED: IV FLUID CONTINUATION 1,000 ML IV ONE (13:53)
[2020-04-27] MEDS ORDERED: fentaNYL (PF) 50 MCG/ML 2 ML AMP ONE (13:55)
[2020-04-27] MEDS ORDERED: fentaNYL (PF) 50 MCG/ML 2 ML AMP IV ONE (13:59)
[2020-04-27] MEDS ORDERED: MIDAZOLAM 2 MG/2 ML VIAL IV ONE (13:59)
[2020-04-27] MEDS ORDERED: LIDOCAINE 1% INJ 10MG/ML (20 ML MDV) SQ ONE (14:00)
[2020-04-27] MEDS: VERAPAMIL SYRINGE (5 MG/10 ML) INTRAARTER ONE ×2 (14:02→14:17)
[2020-04-27] MEDS: BUPRENORPHINE HCL SUBLINGUAL SCH (14:10)
[2020-04-27] MEDS: [UNRECOGNIZED DRUG - OTHER] SUBLINGUAL SCH (14:10)
[2020-04-27] MEDS: NALOXONE HCL SUBLINGUAL SCH (14:10)
[2020-04-27] MEDS ORDERED: IOPAMIDOL-370 125ML BTL INJ ONE (14:16)
[2020-04-27] MEDS ORDERED: RX INFO: IV CONTRAST WAS GIVEN 1 EACH MISC MISCELLANE PRN (14:21)
[2020-04-27] MEDS ORDERED: [UNRECOGNIZED DRUG - OTHER] SUBLINGUAL ONE (14:45)
[2020-04-27] MEDS ORDERED: NALOXONE HCL SUBLINGUAL ONE (14:45)
[2020-04-27] MEDS ORDERED: BUPRENORPHINE HCL SUBLINGUAL ONE (14:45)
[2020-04-27 15:11] VITALS: TEMP 98
--- NOTE | 2020-04-27 16:55 | ECHOF ---
Referral Reason:Possible secondary pulmonary hypertension MEASUREMENTS -------- HEIGHT: 175.3 cm WEIGHT: 66.2 kg BP: 145/88 RVIDd: 3.2 cm (< 3.3) IVSd: 1.1 cm (0.6 - 1.1) LVIDd: 3.7 cm (3.9 - 5.3) LVPWd: 1.0 cm (0.6 - 1.1) IVSs: 1.4 cm LVIDs: 2.7 cm LVPWs: 1.5 cm LA Diam: 2.2 cm (2.7 - 3.8) LAESV Index (A-L): 20.75 ml/m Ao Diam: 3.4 cm (2.0 - 3.7) AV Cusp: 1.8 cm (1.5 - 2.6) MV EXCURSION: 19.197 mm (> 18.000) MV EF SLOPE: 77 mm/s (70 - 150) EPSS: 1.1 cm MV E Terrence: 0.76 m/s MV DecT: 251 ms MV A Terrence: 0.72 m/s MV E/A Ratio: 1.05 RAP: 5.00 mmHg RVSP: 17.61 mmHg FINDINGS -------- Sinus rhythm. This was a technically adequate study. The left ventricular size is normal. Left ventricular wall thickness is normal. Overall left vent ricular systolic function is normal with, an EF between 55 - 60 %. The right ventricle is normal in size. Normal LA size by volume 22+/-6 ml/m2. The right atrium is normal in size. Interatrial and interventricular septum intact. There is mild aortic valve sclerosis. The mitral valve is normal. Trace tricuspid regurgitation present. Right ventricular systolic pressure is normal at < 35 mmHg. Trace/mild (physiologic) pulmonic regurgitation. The aortic root size is normal. Normal inferior vena cava with normal inspiratory collapse consistent with estimated right atrial pre ssure of 5 mmHg. There is no pericardial effusion. CONCLUSIONS -------- 1. The left ventricular size is normal. 2. Left ventricular wall thickness is normal. 3. Overall left ventricular systolic function is normal with, an EF between 55 - 60 %. 4. There is mild aortic valve sclerosis. 5. Trace tricuspid regurgitation present. 6. Trace/mild (physiologic) pulmonic regurgitation. 7. There is no pericardial effusion. AQUATICS MANAGER: Gayatri Rodriguez RDCS
[2020-04-27 17:15] VITALS: RESP 16
[2020-04-27 18:15] VITALS: BP 123/54
--- NOTE | 2020-04-27 21:44 | P.CARDCATH ---
Date of Procedure: 04/27/20 Preoperative Diagnosis: Chest pain concerning for unstable angina Postoperative Diagnosis: Same Anesthesia: regional, local Condition: stable Description of Procedure: Procedure performed: Left heart catheterization with bilateral coronary angiography, left ventriculography Procedure performed by: Dr. Rohith Bob Date of procedure: 04/27/2020 Conscious sedation: Under the direct supervision of myself, continuous conscious sedation was administered by me for a total of 20 minutes with Versed and fentanyl. History: Patient is a pleasant 59-year-old male with history of porphyria, tobacco abuse, peripheral arterial disease status post right iliac stenting who presented with new onset of worsening shortness of breath mainly associated with exertion along with some chest pain over the last 3 weeks. Due to patient's medical history and somewhat typical symptoms a heart catheterization was offered to patient to further assess. Description of procedure: After the risks, benefits and alternatives of the above mentioned procedure was explained in detail to the patient, informed consent was obtained. The patient was brought to the catheterization laboratory and prepped and draped in the usual fashion. Patient received sedation with Versed and fentanyl. 2% lidocaine was used to anesthetize the right radial area. A 6 Danish right radial sheath was placed using Seldinger technique. Left and right coronary angiography was performed using a 6 Danish FL 3.5 and FR 5 diagnostic catheter respectively. Next a 6 Danish angled pigtail catheter was advanced into the left ventricle and pressure measurements were obtained. Left ventriculography was performed in the CROWE projection. Pullback across the aortic valve was performed. The pigtail catheter was removed and then the right radial sheath was removed with a TR band placed and hemostasis achieved. The patient tolerated the procedure well and was transferred to the post catheterization holding area in stable condition. Coronary angiography: Left main: Left main is a large caliber vessel which bifurcates into the LAD and circumflex. There is no significant stenosis. LAD: LAD is a large-caliber vessel which wraps around the apex and gives off a moderate caliber diagonal branch. There are mild luminal irregularities of the LAD. Circumflex: The circumflex is a moderate caliber vessel which gives off 2 obtuse marginal branches. There is no significant stenosis. RCA: RCA is a large-caliber dominant vessel which bifurcates into the PDA and PLV branch. There is no significant stenosis. Left ventriculography: Left ventricular ejection fraction is 60% without wall motion abnormalities. There is no significant mitral regurgitation. There is no significant gradient with pullback across the aortic valve. LV 122/2 LVEDP 9 Assessment: 1. Normal coronary arteries with only mild luminal irregularities of the LAD 2. Normal ejection fraction 60% without wall motion abnormalities Plan: 1. Aggressive risk factor modification per most recent ACC/AHA guidelines. 2. Tobacco cessation encouraged 3. Consider other workup of patient's shortness breath and chest pains.
--- NOTE | 2020-04-27 23:06 | P.DS ---
Providers Date of admission: 04/26/20 15:32 Expected date of discharge: 04/27/20 Attending physician: Dre Baltazar Consults: 04/26/20 15:32 Consult Physician Urgent Consulting Provider: [facility] Consult Reason/Comments: Chest pain Do you want consulting provider notified?: Yes Primary care physician: Deandre Thomas [facility] Course: Chief Complaint: Short of breath History of presenting complaint: This is a 59-year-old patient follows with Dr. thomas to [place]. For last few days having increasingly short of breath. Dizzy, feeling hot and cold. No fevers.. Questionable chest pain. No fever no chills. No cough. Some wheezing. Patient just started seeing a lining marker and was given a beta naun. Patient due for a stress test in due course. Patient has continued to smoke. 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 Patient was seen by the local lining marker as a preoperative clearance for left inguinal hernia repair. Pending. Patient's at the bedside. Admitted with unstable angina. today-underwent cardiac catheterization. Order normal coronaries. Was also treated for COPD exacerbation. Counseled about smoking. Consultation: Dr. Bob from cardiology Physical examination: VITAL SIGNS: 99.4, 52, 18, 152/78, 97% on 2 L GENERAL: BMI 21.6, sitting up in bed, slightly anxious. EYES: Pupils equal. Conjunctiva normal. HEENT: Patient has chronic skin changes on the right side of the face. NECK: JVD not raised; masses not palpable. HEART: First and second heart sounds are normal; no edema. LUNGS: Respiratory rate increased, diminished breath sounds prolonged expirat ion. ABDOMEN: Soft, nontender, liver spleen not palpable, no masses palpable. PSYCH: Alert and oriented x3; mood and affect normal. NEUROLOGICAL: Cranial nerves grossly intact; no facial asymmetry, power and sensation grossly intact. EXTREMITIES: Chronic skin changes on the back of the right hand LYMPHATICS: No lymph nodes palpable in the axilla and neck INVESTIGATIONS, reviewed in the clinical context: White count 10.7 hemoglobin 14.8 platelets 108 potassium 4.2 creatinine 0.60 line troponin I 0.016, 0.029 EKG tracing personally reviewed by me-normal sinus rhythm, flipped T waves in lead 1 aVL and some nonspecific changes in V1 and V2 Chest x-ray film personally reviewed by me-hyperinflation prominent pulmonary artery tubular heart cardiac catheterization-normal coronaries 2-D echocardiogram-EF 55-60% Assessment: -chest pain-possibly muscular skeletal, POA -Acute COPD exacerbation in a current smoker, POA -Suspect underlying secondary pulmonary hypertension will check a 2-D echocardiogram -Peripheral arterial disease with a stent in the right leg previously -Chronic nicotine dependence cigarette smoker -porphyria cutanea tarda -Left inguinal hernia pending surgical repair disposition: Home Patient Condition at Discharge: Stable Plan - Discharge Summary Discharge Rx Participant: No New Discharge Prescriptions: New Nicotine 21Mg/24Hr Patch [Habitrol] 1 patch TRANSDERM DAILY #14 patch Continue traMADol HCL [Ultram] 100 mg PO BID Glycopyrrolate/Formoterol Fum [Bevespi Aerosphere Inhaler] 1 puff INHALATION DAILY Nitroglycerin 0.4 mg SL Q5M PRN PRN Reason: chest pain Metoprolol Succinate [Toprol XL] 50 mg PO DAILY Atorvastatin [Lipitor] 80 mg PO DAILY Buprenorphine HCl/Naloxone HCl [Buprenorp-Nalox 8-2 mg Sl Film] 1 film SL BID Albuterol Inhaler [Ventolin Hfa Inhaler] 2 puff INHALATION RT-QID Aspirin [[place] Aspirin EC] 81 mg PO DAILY Discharge Medication List Glycopyrrolate/Formoterol Fum [Bevespi Aerosphere Inhaler] 1 puff INHALATION DAILY 09/12/19 [History] traMADol HCL [Ultram] 100 mg PO BID 09/12/19 [History] Albuterol Inhaler [Ventolin Hfa Inhaler] 2 puff INHALATION RT-QID 04/26/20 [History] Aspirin [[place] Aspirin EC] 81 mg PO DAILY 04/26/20 [History] Atorvastatin [Lipitor] 80 mg PO DAILY 04/26/20 [History] Buprenorphine HCl/Naloxone HCl [Buprenorp-Nalox 8-2 mg Sl Film] 1 film SL BID 04/26/20 [History] Metoprolol Succinate [Toprol XL] 50 mg PO DAILY 04/26/20 [History] Nitroglycerin 0.4 mg SL Q5M PRN 04/26/20 [History] Nicotine 21Mg/24Hr Patch [Habitrol] 1 patch TRANSDERM DAILY #14 patch 04/27/20 [Rx] Follow up Appointment(s)/Referral(s): Rohith Bob DO [STAFF PHYSICIAN] - 05/06/20 1:15 pm Deandre Thomas MD [Primary Care Provider] - 04/30/20 10:30 am Patient Instructions/Handouts: *Surgery [facility] - After Heart Catheterization - [facility] Instructions Discharge Disposition: HOME SELF-CARE
== END 2020-04-27 18:40 | disposition home or self-care (01) ==
LOC: EC 13:27 → 3NCARDOBS 15:32
PROVIDERS: ADMIT Hospitalist; ATTEND Hospitalist
DX: R07.89 Other chest pain (principal); B19.20 Unspecified viral hepatitis C without hepatic coma; E80.1 Porphyria cutanea tarda; F17.210 Nicotine dependence, cigarettes, uncomplicated; I10 Essential (primary) hypertension; I73.9 Peripheral vascular disease, unspecified; J44.1 Chronic obstructive pulmonary disease with (acute) exacerbation; K40.90 Unilateral inguinal hernia, without obstruction or gangrene, not specified as recurrent; Z79.82 Long term (current) use of aspirin; Z79.899 Other long term (current) drug therapy; Z95.820 Peripheral vascular angioplasty status with implants and grafts; L40.9 Psoriasis, unspecified; R42 Dizziness and giddiness
CPT/HCPCS: 93005 ×2; 99285; 36415; 94640 ×3; 94760; 93306; 93458; 80061; 80053; 83735; 84484; 85025; 85610; 85730; 71046; G0378 ×2; C1769; C1894; S4990 ×2; J2250; J2001; J3010; J1644; Q9967

== ENCOUNTER → 2020-05-27 | Day surgery (SDC) | payer OTHER, MEDICARE ==
[2020-05-25 10:53] VITALS: BMI 21.4
[~2020-05-27] MED LIST: ACETAMINOPHEN TAB 325 MG TAB PO PRN; ACETAMINOPHEN TAB 500 MG TAB ONE; ACETAMINOPHEN TAB 500 MG TAB PO ONE; BUPIVACAINE (PF) 0.5% 30 ML VIAL SQ ONE; DEXAMETHASONE SOD PHOSPHATE 10 MG/ML 1 ML VIAL IV ONE; GABAPENTIN 300 MG CAP PO STA; GLYCOPYRROLATE 0.2 MG/ML 2 ML VIAL ONE; HEPARIN SODIUM,PORCINE 5,000 UNIT/ML 1 ML VIAL SQ ONE; HYDROmorphone (PF) 1 MG/ML ONE; LACTATED RINGERS 1,000 ML IV ONE; LIDOCAINE 1% (10MG/ML) FOR IV START INTRADERMA ONE; NEOSTIGMINE 1 MG/ML 10 ML VIAL ONE; ONDANSETRON 4 MG/2 ML VIAL IVP ONE; PHENYLEPHRINE-0.9% NACL SYG 1 MG/10 ML SYRINGE ONE; PROPOFOL 10 MG/ML 20 ML VIAL IV ONE; ROCURONIUM BROMIDE 10 MG/ML 5 ML VIAL IV ONE; SUCCINYLCHOLINE CHLORIDE 100 MG/5 ML SYR IV ONE; TAMSULOSIN 0.4 MG CAP.ER.24H PO STA; fentaNYL (PF) 50 MCG/ML 2 ML AMP ONE
--- NOTE | 2020-05-27 06:56 | P.GSHP ---
History of Present Illness H&P Date: 05/27/20 CHIEF COMPLAINT: Inguinal hernia, left HISTORY OF PRESENT ILLNESS: The patient is a 60-year-old male who presents with a history of swelling and pain along the left groin. He's noted increased swelling including pain of the area. Now he presents for repair of his inguinal hernia. PAST MEDICAL HISTORY: Please see list. PAST SURGICAL HISTORY: Please see list. MEDICATIONS: Please see list. ALLERGIES: Please see list. SOCIAL HISTORY: No illicit drug use FAMILY HISTORY: No reports of Crohn disease or ulcerative colitis. REVIEW OF ORGAN SYSTEMS: CONSTITUTIONAL: No reports of fevers or chills. GI: Denies any blood in stools or constipation. PHYSICAL EXAM: VITAL SIGNS: Stable GENERAL: Well-developed pleasant male in no acute distress. HEENT: No scleral icterus. Extraocular movements grossly intact. Moist buccal mucosa. NECK: Supple without lymphadenopathy. CHEST: Unlabored respirations. Equal bilateral excursions. CARDIOVASCULAR: Regular rate and rhythm. Distal 2+ pulses. ABDOMEN: Soft, nondistended. No peritoneal signs. Palpable defect of the left groin. MUSCULOSKELETAL: No clubbing, cyanosis, or edema. ASSESSMENT: 1. Inguinal hernia, left PLAN: 1. Recommend proceeding with a robotic inguinal repair with mesh with possible bilateral approach. 2. Benefits and risks of surgical intervention was discussed including possibility of open technique. 3. DVT prophylaxis. 4. Antibiotic prophylaxis. Past Medical History Past Medical History: COPD, Liver Disease, Vascular Disorder Additional Past Medical History / Comment(s): Hepatitis C-treated/cured, skin condition ?purpura with chronic pain especially involving face, PAD, benign cecal polyps, L inguinal hernia. History of Any Multi-Drug Resistant Organisms: None Reported Past Surgical History: Appendectomy, Heart Catheterization Additional Past Surgical History / Comment(s): EGD, colonoscopy, stent right leg for circulation, mediport & later removed Past Anesthesia/Blood Transfusion Reactions: No Reported Reaction Smoking Status: Former smoker - Past Family History Father Family Medical History: Cancer Additional Family Medical History / Comment(s): Father of pancreatic cancer at the age of 78yrs. Mother Family Medical History: Renal Disease Medications and Allergies Home Medications Medication Instructions Recorded Confirmed Type Glycopyrrolate/Formoterol Fum 2 puff INHALATION BID 09/12/19 05/25/20 History [Bevespi Aerosphere Inhaler] traMADol HCL [Ultram] 50 mg PO BID 09/12/19 05/25/20 History Albuterol Inhaler [Ventolin Hfa 2 puff INHALATION RT-QID 04/26/20 05/25/20 History Inhaler] Aspirin [[place] Aspirin EC] 81 mg PO DAILY 04/26/20 05/25/20 History Buprenorphine HCl/Naloxone HCl 1 film SL BID 04/26/20 05/25/20 History [Buprenorp-Nalox 8-2 mg Sl Film] Nicotine 14Mg/24Hr Patch [Habitrol 1 patch TRANSDERM DAILY 05/25/20 05/25/20 History 14Mg/24Hr Patch] Allergies Allergy/AdvReac Type Severity Reaction Status Date / Time ibuprofen [From Motrin] AdvReac Nausea & Verified 05/25/20 10:36 Vomiting
[2020-05-27 10:16] VITALS: RESP 16
[2020-05-27 10:48] LABS: Basophils % (A) 0 %; Eosinophils # (A) 0.1 k/uL (0-0.7); Eosinophils % (A) 2 %; HCT 40.9 % (39.0-53.0); HGB 14.4 gm/dL (13.0-17.5); Hyperchromasia Slight; Lymphocytes # (A) 0.8 k/uL (1.0-4.8); Lymphocytes % (A) 13 %; MCH 31.6 pg (25.0-35.0); MCHC 35.2 g/dL (31.0-37.0); MCV 89.8 fL (80.0-100.0); Monocytes # (A) 0.3 k/uL (0-1.0); Monocytes % (A) 5 %; Neutrophils # (A) 4.8 k/uL (1.3-7.7); Neutrophils % (A) 79 %; RBC 4.55 m/uL (4.30-5.90); WBC 6.1 k/uL (3.8-10.6)
[2020-05-27 11:51] LABS: Platelet Count 98 k/uL (150-450)
[2020-05-27 15:04] VITALS: TEMP 98.1
[2020-05-27] MEDS: HYDROmorphone 0.5 MG/0.5 ML SYRINGE IVP PRN ×3 (15:24→16:19)
[2020-05-27] MEDS: LACTATED RINGERS 1,000 ML IV SCH ×2 (15:49→17:22)
--- NOTE | 2020-05-27 15:55 | P.OP ---
Date of Procedure: 05/27/20 Description of Procedure: SURGEON: ALEXA GROVER MD PREOPERATIVE DIAGNOSES: 1. Initial left inguinal hernia. 2. Chronic obstructive pulmonary disease 3. Pre-existing history of tobacco abuse disorder 4. History of hepatitis C 5. Generalized anxiety disorder 6. Porphyria cutanea tarda 7. Psoriasis 8. Peripheral artery disease 9. Pre-existing obstructive uropathy POSTOPERATIVE DIAGNOSES: 1. Initial left inguinal hernia, direct 2. Chronic obstructive pulmonary disease 3. Pre-existing history of tobacco abuse disorder 4. History of hepatitis C 5. Generalized anxiety disorder 6. Porphyria cutanea tarda 7. Psoriasis 8. Peripheral artery disease 9. Initial right inguinal hernia, direct 10. Right inguinal lipoma 11. Pre-existing obstructive uropathy OPERATION: 1. Robotic-assisted da Mary Xi laparoscopic repair of initial incarcerated right direct inguinal hernia with mesh, 11.[address] 2. Robotic-assisted da Mary Xi laparoscopic repair of initial incarcerated left direct inguinal hernia with mesh, 11.[address] 3. Resection of incarcerated right inguinal lipoma, 2 cm ANESTHESIA: General with local anesthetic ESTIMATED BLOOD LOSS: 5 mL. SPECIMENS: 1. Incarcerated right inguinal hernia COMPLICATIONS: None. FINDINGS: 1. Incarcerated initial right inguinal hernia, 3 cm, direct 2. Left inguinal hernia, 2 cm, direct INDICATIONS: The patient is a 60-year-old gentleman who presents with history of right inguinal hernia. For optimal perioperative management, patient was asked to discontinue tobacco use and he had done so and quit for at least 30 days. Now presents for definitive surgical intervention. Laparoscopic versus open and robotic approaches were discussed. Benefits and risks including bleeding, infection, injury to the vas deferens as well as sterility and chronic groin pain were reviewed. Placement of mesh was also described. Informed consent was obtained. DESCRIPTION: In the preoperative area, the patient was marked with indelible marker along the inguinal hernia. The patient was brought to the operating room and initially laid in supine position. The abdomen had been prepped and draped in standard sterile fashion. Ioban draping was also placed. Prior to incision, a timeout protocol was confirmed with surgical team regarding patient's name including procedures to be performed and location along the left groin. Initial positioning for the robotic assisted ports were selected whereby 20 cm superior to the target anatomy, 0 degree 5 mm laparoscopic trocar entry was performed at the left upper quadrant. The abdomen was insufflated to 15 mmHg which he had tolerated well. Diagnostic laparoscopy demonstrated no injury to bowel, viscera or mesentery. A defect along the left groin with a large defect along the right identified. Next, along the epigastrium, 8 mm robot trocar was placed. An 8-mm robotic trocar was placed under direct visualization at the right upper quadrant. An 8 mm port was placed at the left upper quadrant. All trocars were positioned between 10-cm apart from each other. The [employer] XI robot was primed, draped, prepared for docking along upper abdomen of the patient. The patient was positioned 16 steep Trendelenburg position I then went to the [employer] Xi console. The commissary assistant was at bedside for exchange of the robot arms and equipment. The left indirect inguinal hernia sac was evaginated whereby the peritoneum was scored using Endo scissors with cautery. Once completely reduced into the abdominal cavity, the peritoneal sac of the hernia was stripped. The sac was resected and then passed off for further pathological analysis. The size of the hernia defect was 2 cm with intraoperative films obtained. Using a 2-0 VLOC, the peritoneal defect of the left inguinal hernia sites was closed using a running suture separately. The defect was found to be completely closed with complete reduction of the left direct inguinal hernia were confirmed. As an onlay, an 11.[address] mesh by [place] was initially cut in half and entered into the abdominal cavity via the 8 mm trocar. The mesh was tacked to the pelvis using nonabsorbable 2-0 VLOC 9-inch length sutures. Next, careful attention along the right groin demonstrated an incarcerated left inguinal hernia, over 2 cm. A direct inguinal hernia was confirmed. The right inguinal hernia sac was evaginated whereby the peritoneum was scored using Endo scissors with cautery. Once completely reduced into the abdominal cavity, the peritoneal sac of the hernia was stripped along a tightly incarcerated inguinal hernia involving a 2-cm right inguinal lipoma. The lipoma and sac was resected and then passed off for further pathological analysis. The size of the hernia defect was 3 cm with intraoperative films obtained. Using a 2-0 VLOC, the peritoneal defect of the right inguinal hernia site was closed using a running suture. The defect was found to be completely closed with complete reduction of the right direct inguinal hernia was confirmed. As an onlay, an 11.[address] mesh by [place] was initially cut in half and entered into the abdominal cavity via the 8 mm trocar. The mesh was tacked to the pelvis using nonabsorbable 2-0 VLOC 9-inch length sutures. The robot was undocked from the patient's bedside. I then rescrubbed into the case. Insufflation was released from the abdominal cavity and all instruments were removed from the abdominal cavity. The rest of incisions were reapproximated using 4-0 Monocryl in a running subcuticular fashion. Local anesthetic was placed along the incision including for a bilateral groin block. Incisions were cleansed using dilute hydrogen peroxide. Liquid glue was applied to the skin. At the end of the procedure, the needle, sponge and instrument counts had been verified correct by the rn surgical pcu. The patient had tolerated the procedure well and was taken to the postanesthesia care unit in stable condition. Plan - Discharge Summary Discharge Rx Participant: No New Discharge Prescriptions: New Acetaminophen Tab [Tylenol Tab] 500 mg PO Q6H PRN #30 tablet PRN Reason: Pain Continue traMADol HCL [Ultram] 50 mg PO BID Glycopyrrolate/Formoterol Fum [Bevespi Aerosphere Inhaler] 2 puff INHALATION BID Buprenorphine HCl/Naloxone HCl [Buprenorp-Nalox 8-2 mg Sl Film] 1 film SL BID Albuterol Inhaler [Ventolin Hfa Inhaler] 2 puff INHALATION RT-QID Aspirin [[place] Aspirin EC] 81 mg PO DAILY Nicotine 14Mg/24Hr Patch [Habitrol] 1 patch TRANSDERM DAILY Discharge Medication List Glycopyrrolate/Formoterol Fum [Bevespi Aerosphere Inhaler] 2 puff INHALATION BID 09/12/19 [History] traMADol HCL [Ultram] 50 mg PO BID 09/12/19 [History] Albuterol Inhaler [Ventolin Hfa Inhaler] 2 puff INHALATION RT-QID 04/26/20 [History] Aspirin [[place] Aspirin EC] 81 mg PO DAILY 04/26/20 [History] Buprenorphine HCl/Naloxone HCl [Buprenorp-Nalox 8-2 mg Sl Film] 1 film SL BID 04/26/20 [History] Nicotine 14Mg/24Hr Patch [Habitrol] 1 patch TRANSDERM DAILY 05/25/20 [History] Acetaminophen Tab [Tylenol Tab] 500 mg PO Q6H PRN #30 tablet 05/27/20 [Rx] Follow up Appointment(s)/Referral(s): Alexa Grover MD [STAFF PHYSICIAN] - 06/01/20 (YOU WILL NEED TO CALL TO SCHEDULE YOUR FOLLOW UP APPOINTMENT) Patient Instructions/Handouts: *Surgery [facility] - (Anesthesia) Discharge Instructions Outpatient Surgery, Laparoscopic Herniorrhaphy (DC), Inguinal Hernia Repair (DC) Activity/Diet/Wound Care/Special Instructions: No lifting over 10 pounds in 2 weeks until Jun 10. May shower. No bath tub soaks for two weeks until Jun 10. Diet as tolerated. No driving while on narcotics. Use Tylenol and ibuprofen/Aleve scheduled for the next 24-48 hours for best pain relief. Use ice along incisions for the today to prevent swelling. Discharge Disposition: HOME SELF-CARE
[2020-05-27 17:00] VITALS: BP 138/77; PULSE 76
== END | disposition home or self-care (01) ==
LOC: OR 09:50
PROVIDERS: ATTEND Surgery Plastic and Reconstructive Surgery
DX: K40.30 Unilateral inguinal hernia, with obstruction, without gangrene, not specified as recurrent (principal); K40.90 Unilateral inguinal hernia, without obstruction or gangrene, not specified as recurrent; D17.79 Benign lipomatous neoplasm of other sites; N13.9 Obstructive and reflux uropathy, unspecified; J44.9 Chronic obstructive pulmonary disease, unspecified; Z87.891 Personal history of nicotine dependence; F41.1 Generalized anxiety disorder; E80.1 Porphyria cutanea tarda; L40.9 Psoriasis, unspecified; I73.9 Peripheral vascular disease, unspecified; Z86.19 Personal history of other infectious and parasitic diseases; K76.9 Liver disease, unspecified; G89.29 Other chronic pain; D69.2 Other nonthrombocytopenic purpura; Z86.010 Personal history of colon polyps; Z95.820 Peripheral vascular angioplasty status with implants and grafts; Z97.2 Presence of dental prosthetic device (complete) (partial); Z98.890 Other specified postprocedural states; Z80.8 Family history of malignant neoplasm of other organs or systems; Z84.1 Family history of disorders of kidney and ureter; Z79.82 Long term (current) use of aspirin; Z79.891 Long term (current) use of opiate analgesic; Z79.51 Long term (current) use of inhaled steroids; Z79.899 Other long term (current) drug therapy; Z88.6 Allergy status to analgesic agent
CPT/HCPCS: 49650; S2900; 85025; 88302

== ENCOUNTER 2020-08-16 10:46 | Day surgery (SDC) | payer OTHER, MEDICARE ==
[2020-08-13 08:40] VITALS: BMI 21.0
--- NOTE | 2020-08-15 21:50 | P.GSHP ---
History of Present Illness H&P Date: 08/16/20 CHIEF COMPLAINT: Left groin mass HISTORY OF PRESENT ILLNESS: The patient is a 60 year-old male with history of mass along the left groin. He presents today for surgical excision. PAST MEDICAL HISTORY: Please see list. PAST SURGICAL HISTORY: Please see list. MEDICATIONS: Please see list. ALLERGIES: Please see list. SOCIAL HISTORY: No illicit drug use FAMILY HISTORY: No reports of Crohn disease or ulcerative colitis. REVIEW OF ORGAN SYSTEMS: CONSTITUTIONAL: No reports of fevers or chills. GI: Denies any blood in stools or constipation. PHYSICAL EXAM: VITAL SIGNS: Stable SKIN: Well perfused. 3 cm lipoma at the left groin. Musculoskeletal: No clubbing cyanosis or edema GENERAL: Well developed and in no acute distress. Pleasant. HEENT: No sclera icterus. Extraocular movements grossly intact. Moist buccal mucosa. Head is atraumatic, normocephalic. Hears conversational speech. No nasal drainage. NECK: No JV distention. CHEST: Non-labored respirations and equal bilateral excursions. CARDIOVASCULAR: Regular rate and rhythm. Palpable 2+ radial pulses. ABDOMEN: Soft. Non-tender. Nondistended. NEUROLOGIC: No focal or lateralizing signs. PSYCH: Appropriate affect. Alert and oriented to person, place and time. ASSESSMENT: 1. Mass along left groin PLAN: 1. Will proceed of excision of subcutaneous tumor along the left groin. 2. DVT prophylaxis. 3. Antibiotic prophylaxis. 4. Time of recovery, at least one week. Past Medical History Past Medical History: COPD, Liver Disease, Vascular Disorder Additional Past Medical History / Comment(s): Hepatitis C-treated/cured, has a rare skin condition, lesions with chronic pain especially involving face, PAD, hx.of L inguinal hernia, L groin lipoma, past infections from mediport. History of Any Multi-Drug Resistant Organisms: None Reported Past Surgical History: Appendectomy, Heart Catheterization, Hernia Repair Additional Past Surgical History / Comment(s): EGD, colonoscopy, stent right leg for circulation, mediport & later removed Past Anesthesia/Blood Transfusion Reactions: No Reported Reaction Past Psychological History: Anxiety Additional Psychological History / Comment(s): Pt resides with his spouse. He is disabled. He drives. He has a nebulizer. Smoking Status: Former smoker Past Alcohol Use History: None Reported Additional Past Alcohol Use History / Comment(s): 1ppd since teens quit 04/15 Past Drug Use History: Marijuana Additional Drug Use History / Comment(s): Pt states he had past opiate abuse/IV heroin addiction but quit heroin 35 yrs ago and quit opiates 7-8 yrs ago. He states he uses medical marijuana occasionally - Past Family History Father Family Medical History: Cancer Additional Family Medical History / Comment(s): Father of pancreatic cancer at the age of 78yrs. Mother Family Medical History: Renal Disease Medications and Allergies Home Medications Medication Instructions Recorded Confirmed Type Glycopyrrolate/Formoterol Fum 2 puff INHALATION BID 09/12/19 08/13/20 History [Bevespi Aerosphere Inhaler] traMADol HCL [Ultram] 50 mg PO BID 09/12/19 08/13/20 History Albuterol Inhaler [Ventolin Hfa 2 puff INHALATION RT-QID 04/26/20 08/13/20 History Inhaler] Buprenorphine HCl/Naloxone HCl 1 film SL BID 04/26/20 08/13/20 History [Buprenorp-Nalox 8-2 mg Sl Film] Allergies Allergy/AdvReac Type Severity Reaction Status Date / Time hydrocodone [From Vicodin] Allergy Rash/Hives Verified 08/13/20 08:35 ibuprofen [From Motrin] Allergy Nausea, Verified 08/13/20 08:35 vomiting & rash
[~2020-08-16 10:46] MED LIST changes: -ACETAMINOPHEN TAB 325 MG TAB PO PRN; -ACETAMINOPHEN TAB 500 MG TAB ONE; -ACETAMINOPHEN TAB 500 MG TAB PO ONE; +ACETAMINOPHEN TAB 500 MG TAB PO STA; -BUPIVACAINE (PF) 0.5% 30 ML VIAL SQ ONE; -DEXAMETHASONE SOD PHOSPHATE 10 MG/ML 1 ML VIAL IV ONE; +DEXAMETHASONE SOD PHOSPHATE 4 MG/ML 1 ML VIAL IV ONE; -GLYCOPYRROLATE 0.2 MG/ML 2 ML VIAL ONE; -HEPARIN SODIUM,PORCINE 5,000 UNIT/ML 1 ML VIAL SQ ONE; -HYDROmorphone (PF) 1 MG/ML ONE; -LACTATED RINGERS 1,000 ML IV ONE; +LACTATED RINGERS 1,000 ML IV SCH; -LIDOCAINE 1% (10MG/ML) FOR IV START INTRADERMA ONE; -NEOSTIGMINE 1 MG/ML 10 ML VIAL ONE; -PHENYLEPHRINE-0.9% NACL SYG 1 MG/10 ML SYRINGE ONE; -PROPOFOL 10 MG/ML 20 ML VIAL IV ONE; +Pre Op ABX Message 1 EACH MISC MISCELLANE ONE; -ROCURONIUM BROMIDE 10 MG/ML 5 ML VIAL IV ONE; -SUCCINYLCHOLINE CHLORIDE 100 MG/5 ML SYR IV ONE; +fentaNYL (PF) 50 MCG/ML 2 ML AMP IV PRN; -fentaNYL (PF) 50 MCG/ML 2 ML AMP ONE
[2020-08-16] MEDS ORDERED: HEPARIN SODIUM,PORCINE 5,000 UNIT/ML 1 ML VIAL ONE (11:54)
[2020-08-16] MEDS ORDERED: ePHEDrine SULFATE/0.9% NACL/PF 50 MG/5 ML SYRINGE IV ONE (11:55)
[2020-08-16] MEDS ORDERED: PROPOFOL 10 MG/ML 20 ML VIAL IV ONE (11:55)
[2020-08-16] MEDS ORDERED: LIDOCAINE 1% INJ 10MG/ML (20 ML MDV) ONE (11:55)
[2020-08-16] MEDS ORDERED: KETAMINE 10 MG/ML 20 ML VIAL ONE (11:55)
[2020-08-16] MEDS ORDERED: MIDAZOLAM 2 MG/2 ML VIAL ONE (11:55)
[2020-08-16] MEDS ORDERED: HEPARIN SODIUM,PORCINE 5,000 UNIT/ML 1 ML VIAL SQ ONE (11:57)
--- NOTE | 2020-08-16 12:17 | P.HPADDEND ---
H&P Addendum H&P Addendum Date: 08/16/20 Patient noted to have cyst along the left groin. When laying down, lump resolves. Patient did stand up and lump recurred. Excision of cyst of the left groin described with risk of recurrence reviewed. Alternatively, possible bladder diverticulum described. Patient reports persistence of swelling despite voiding. Patient still wished to proceed with procedure, excision of left groin cyst.
[2020-08-16] MEDS ORDERED: LIDOCAINE 1%-EPI 1:100,000 20 ML VIAL SQ ONE (12:24)
[2020-08-16 13:42] VITALS: TEMP 97.7
--- NOTE | 2020-08-16 14:02 | P.OP ---
Date of Procedure: 08/16/20 Description of Procedure: SURGEON: ALEXA GROVER MD SOFTWARE QUALITY ENGINEER: NONE. PREOPERATIVE DIAGNOSIS: 1. Left inguinal lipoma 2. Chronic obstructive pulmonary disease 3. Pre-existing history of tobacco abuse disorder, resolved 4. History of hepatitis C 5. Generalized anxiety disorder 6. Porphyria cutanea tarda 7. Psoriasis 8. Peripheral artery disease 9. Pre-existing obstructive uropathy 10. Previous left inguinal hernia repair POSTOPERATIVE DIAGNOSIS: 1. Left inguinal lipoma, subfascial 5-cm 2. Chronic obstructive pulmonary disease 3. Pre-existing history of tobacco abuse disorder, resolved 4. History of hepatitis C 5. Generalized anxiety disorder 6. Porphyria cutanea tarda 7. Psoriasis 8. Peripheral artery disease 9. Pre-existing obstructive uropathy 10. Previous left inguinal hernia repair ANESTHESIA: General with local anesthetic ESTIMATED BLOOD LOSS: 5 mL. SPECIMENS: 1. Left inguinal lipoma, subfascial and spermatic cord lipoma COMPLICATIONS: None. FINDINGS: 1. Left inguinal lipoma 5-cm, subfascial including spermaticord lipoma excised. INDICATIONS: The patient is a 60-year-old gentleman who is status post left inguinal hernia repair with pre-existing lipoma of the left groin. He presents for excision. Risk of inguinal cyst and bladder diverticulum with incomplete excision and possible recurrence was described. Benefits and risks including bleeding, infection, injury to the vas deferens as well as sterility and chronic groin pain were reviewed. Placement of mesh was also described. Informed consent was obtained. DESCRIPTION: In the preoperative area, the patient was marked with indelible marker while standing over the left inguinal swelling. The patient was brought to the operating room and initially laid in supine position. The abdomen had been prepped and draped in standard sterile fashion. Ioban draping was also placed. Prior to incision, a timeout protocol was confirmed with surgical team regarding patient's name including procedures to be performed and location along the left groin. Along the left inguinal crease, a 4 cm incision was made over the left inguinal swelling, fingerbreadth above the inguinal canal and medially. Local anesthesia was placed for the skin. Next, the fascia was palpated and using digital palpa tion, the left groin was fully explored with 5-cm left inguinal lipoma subfascial found including a left spermaticord lipoma was excised using ligasure. The finger was gently swept along the inguinal canal including deep along the fascia. No enlarged lymph nodes were encountered. The wound and closed in layers using #1 V-LOC for the fascia and 3-0 Vicryl for the deep subcutaneous tissues. 4-0 Monocryl was placed in a running subcuticular fashion. The patient had tolerated the procedure well. Blood loss was minimal. The patient was taken to postanesthesia care unit in stable condition. Plan - Discharge Summary Discharge Rx Participant: No New Discharge Prescriptions: New Acetaminophen Tab [Tylenol Tab] 1,000 mg PO Q6HR PRN #30 tablet PRN Reason: Pain Continue traMADol HCL [Ultram] 50 mg PO BID Glycopyrrolate/Formoterol Fum [Bevespi Aerosphere Inhaler] 2 puff INHALATION BID Buprenorphine HCl/Naloxone HCl [Buprenorp-Nalox 8-2 mg Sl Film] 1 film SL BID Albuterol Inhaler [Ventolin Hfa Inhaler] 2 puff INHALATION RT-QID Discharge Medication List Glycopyrrolate/Formoterol Fum [Bevespi Aerosphere Inhaler] 2 puff INHALATION BID 09/12/19 [History] traMADol HCL [Ultram] 50 mg PO BID 09/12/19 [History] Albuterol Inhaler [Ventolin Hfa Inhaler] 2 puff INHALATION RT-QID 04/26/20 [History] Buprenorphine HCl/Naloxone HCl [Buprenorp-Nalox 8-2 mg Sl Film] 1 film SL BID 04/26/20 [History] Acetaminophen Tab [Tylenol Tab] 1,000 mg PO Q6HR PRN #30 tablet 08/16/20 [Rx] Follow up Appointment(s)/Referral(s): Alexa Grover MD [STAFF PHYSICIAN] - 08/24/20 Patient Instructions/Handouts: Inguinal Hernia Repair (DC) Activity/Diet/Wound Care/Special Instructions: DO NOT REMOVE DRESSING. WILL BE REMOVED IN OFFICE. No lifting over 10 pounds in 2 weeks, Aug 30. Diet as tolerated. No driving while on narcotics. Notify surgeon for temperature over 101.5, increased redness along incision, increased pain along surgical site. May shower. No bathtub soaks for 2 weeks, Aug 30. Use ice along incisions for the today to prevent swelling. Discharge Disposition: HOME SELF-CARE
[2020-08-16 14:06] VITALS: RESP 16
[2020-08-16 15:11] VITALS: BP 114/61; PULSE 82
== END 2020-08-16 15:42 | disposition home or self-care (01) ==
LOC: OR 10:46
PROVIDERS: ATTEND Surgery Plastic and Reconstructive Surgery
DX: D17.1 Benign lipomatous neoplasm of skin and subcutaneous tissue of trunk (principal); D17.6 Benign lipomatous neoplasm of spermatic cord; E80.1 Porphyria cutanea tarda; F41.1 Generalized anxiety disorder; J44.9 Chronic obstructive pulmonary disease, unspecified; G89.29 Other chronic pain; L40.9 Psoriasis, unspecified; N13.9 Obstructive and reflux uropathy, unspecified; Z86.19 Personal history of other infectious and parasitic diseases; Z87.891 Personal history of nicotine dependence; Z88.5 Allergy status to narcotic agent; Z88.6 Allergy status to analgesic agent; Z79.891 Long term (current) use of opiate analgesic; Z79.899 Other long term (current) drug therapy; Z98.890 Other specified postprocedural states; Z90.49 Acquired absence of other specified parts of digestive tract; I73.9 Peripheral vascular disease, unspecified; Z80.8 Family history of malignant neoplasm of other organs or systems
CPT/HCPCS: 88304; 22901; J2250; J1644; J1100; J0690; J2405; J2001; J2704

== ENCOUNTER → 2020-09-07 | Outpatient (CLI) | payer OTHER, MEDICARE ==
--- NOTE | 2020-09-07 10:48 | US ---
EXAMINATION TYPE: US liver DATE OF EXAM: 09/07/2020 COMPARISON: CT 08/08/2019 CLINICAL HISTORY: 60-year-old male K74.60 UNSPECIFIED CIRRHOSIS OF LIVER. Prior hepatitis, enlarged s pleen on CT TECHNIQUE: Multiple sonographic images of the right upper quadrant are obtained. FINDINGS: EXAM MEASUREMENTS: Liver Length: 17.8 cm Gallbladder Wall: 0.2 cm CBD: 0.5 cm Right Kidney: 10.1 x 5.9 x 3.9 cm Spleen: 17.2 x 6.9 x 16.4cm Pancreas: hyperechoic with mid and tail obscured by overlying bowel gas Liver: Borderline in size. Some of the images suggest slight nodular contour of the liver. No focal l esion is seen. The portal vein was interrogated with color and spectral Doppler. There is satisfactor y hepatopedal flow. The hepatic veins also show appropriate flow direction. Gallbladder: wnl Evidence for sonographic Whitt's sign: no CBD: wnl Right Kidney: wnl Spleen was assessed with prior history of enlargement: It remains enlarged. IMPRESSION: 1. Slight nodular contour of the liver compatible with patient's history of cirrhosis. No focal lesio n to suggest hepatoma. 2. Appropriate hepatopedal flow of the portal venous system. 3. No gallstones or biliary ductal dilatation. 4. Splenomegaly at 17.2 cm.
== END | disposition home or self-care (01) ==
LOC: RADUSWWP 06:59
PROVIDERS: ATTEND Internal Medicine Gastroenterology
DX: K76.89 Other specified diseases of liver (principal); R16.1 Splenomegaly, not elsewhere classified; K74.60 Unspecified cirrhosis of liver
CPT/HCPCS: 76705

== ENCOUNTER 2021-05-11 13:01 | Emergency (ER) | payer MEDICARE, OTHER ==
[2021-05-11 13:18] VITALS: BP 130/83; PULSE 93; RESP 18; TEMP 98.3
--- NOTE | 2021-05-11 13:58 | ED ---
General Adult HPI - General Chief complaint: Shortness of Breath Stated complaint: NICHOLAS Time Seen by Provider: 05/11/21 13:27 Source: patient, RN notes reviewed Mode of arrival: wheelchair Limitations: no limitations - History of Present Illness Initial comments: 61-year-old male presents emergency Department chief complaint of an episode of shortness breath. Patient does have known COPD C heavy smoker states he stopped for 11 months for last 2 weeks she started smoking again. Patient states he and episodes a a.m. in which she felt short of breath he states he cannot move any air EMS arrived and gave him a couple minutes off oxygen and states he felt better and he's been asymptomatic since. No chest pain he had a heart cath last year which was within normal limits. States she had no stents placed he denies any complaints of chest pain fevers cough congestion. - Related Data Home Medications Medication Instructions Recorded Confirmed Glycopyrrolate/Formoterol Fum 2 puff INHALATION BID 09/12/19 08/13/20 [Bevespi Aerosphere Inhaler] traMADol HCL [Ultram] 50 mg PO BID 09/12/19 08/13/20 Albuterol Inhaler [Ventolin Hfa 2 puff INHALATION RT-QID 04/26/20 08/13/20 Inhaler] Buprenorphine HCl/Naloxone HCl 1 film SL BID 04/26/20 08/13/20 [Buprenorphine-Nalox 8-2Mg Film] Previous Rx's Medication Instructions Recorded Acetaminophen Tab [Tylenol Tab] 1,000 mg PO Q6HR PRN #30 tablet 08/16/20 Allergies Allergy/AdvReac Type Severity Reaction Status Date / Time hydrocodone [From Vicodin] Allergy Rash/Hives Verified 05/11/21 13:15 ibuprofen [From Motrin] Allergy Nausea, Verified 05/11/21 13:15 vomiting & rash Review of Systems ROS Statement: Those systems with pertinent positive or pertinent negative responses have been documented in the HPI. ROS Other: All systems not noted in ROS Statement are negative. Past Medical History Past Medical History: COPD, Liver Disease, Vascular Disorder Additional Past Medical History / Comment(s): Hepatitis C-treated/cured, has a rare skin condition, lesions with chronic pain especially involving face, PAD, hx.of L inguinal hernia, L groin lipoma, [facility] History of Any Multi-Drug Resistant Organisms: None Reported Past Surgical History: Appendectomy, Heart Catheterization, Hernia Repair Additional Past Surgical History / Comment(s): EGD, colonoscopy, stent right leg for circulation, mediport & later removed Past Anesthesia/Blood Transfusion Reactions: No Reported Reaction Past Psychological History: Anxiety Smoking Status: Former smoker Past Alcohol Use History: None Reported Past Drug Use History: Marijuana - Past Family History Father Family Medical History: Cancer Additional Family Medical History / Comment(s): Father of pancreatic cancer at the age of 78yrs. Mother Family Medical History: Renal Disease General Exam Limitations: no limitations General appearance: alert, in no apparent distress, cachectic Head exam: Present: atraumatic, normocephalic, normal inspection Eye exam: Present: normal appearance, PERRL, EOMI. Absent: scleral icterus, conjunctival injection, periorbital swelling ENT exam: Present: normal exam, normal oropharynx, mucous membranes moist Neck exam: Present: normal inspection. Absent: tenderness, meningismus, lymphadenopathy Respiratory exam: Present: normal lung sounds bilaterally. Absent: respiratory distress, wheezes, rales, rhonchi, stridor Cardiovascular Exam: Present: regular rate, normal rhythm, normal heart sounds. Absent: systolic murmur, diastolic murmur, rubs, gallop, clicks GI/Abdominal exam: Present: soft, normal bowel sounds. Absent: distended, tenderness, guarding, rebound, rigid Neurological exam: Present: alert Skin exam: Present: warm, dry, intact, normal color. Absent: rash Course Vital Signs 05/11/21 13:15 Temperature 98.3 F Pulse Rate 93 Respiratory 18 Rate Blood Pressure 130/83 O2 Sat by Pulse 96 Oximetry Medical Decision Making - Medical Decision Making Patient was able to ambulate with no difficulty. Patient had no hypoxia. Patient did have psych a panic attack at home he has an appointment with PCP O be discharged in stable condition. Disposition Clinical Impression: COPD (chronic obstructive pulmonary disease), Anxiety Disposition: HOME SELF-CARE Condition: Stable Instructions (If sedation given, give patient instructions): COPD (Chronic Obstructive Pulmonary Disease) (ED) Additional Instructions: Please return to the Emergency Department if symptoms worsen or any other concerns. Is patient prescribed a controlled substance at d/c from ED?: No Referrals: Deandre Thomas MD [Primary Care Provider] - 1-2 days Time of Disposition: 14:44
--- NOTE | 2021-05-11 14:20 | XR ---
EXAMINATION TYPE: XR chest 2V DATE OF EXAM: 05/11/2021 COMPARISON: 04/26/2020 TECHNIQUE: PA and lateral views submitted. HISTORY: Shortness of breath FINDINGS: The lungs are clear and there is no pneumothorax, pleural effusion, or focal pneumonia. Hyperinflat ion suggests COPD. Diffuse osteopenia. Arthropathy of the shoulders. Degenerative change of the spine . No overt failure. Heart size normal. IMPRESSION: 1. No acute process. Correlate for COPD.
== END 2021-05-11 15:33 | disposition home or self-care (01) ==
LOC: EC 13:01
DX: J44.9 Chronic obstructive pulmonary disease, unspecified (principal); F41.9 Anxiety disorder, unspecified; F12.90 Cannabis use, unspecified, uncomplicated; Z87.891 Personal history of nicotine dependence; Z79.51 Long term (current) use of inhaled steroids; Z79.899 Other long term (current) drug therapy
CPT/HCPCS: 71046; 99284

== ENCOUNTER 2021-05-18 05:41 | Observation (INO) | payer MEDICARE, OTHER ==
[2021-05-18] MEDS ORDERED: IPRATROPIUM-ALBUTEROL 3 ML NEB INHALATION STA (06:15)
[2021-05-18] MEDS ORDERED: LORazepam 1 MG TAB PO STA (06:17)
--- NOTE | 2021-05-18 06:18 | ED ---
General Adult HPI - General Chief complaint: Shortness of Breath Stated complaint: NICHOLAS Time Seen by Provider: 05/18/21 06:06 Source: EMS Mode of arrival: EMS Limitations: no limitations - History of Present Illness Initial comments: 61-year-old male with a past medical history of COPD, hepatitis C, PAD, smoking history the emergency room for chief complaint of shortness of breath. Patient reports that over the past 5 days he has woken up short of breath. Patient states that it seems to improve throughout the day, but sometimes recurrs. Patient did start smoking again about 2 weeks ago after quitting for 11 months. Patient denies increased cough. He denies fevers or chills. Patient did get a breathing treatment prior to arrival by EMS. He denies any associated chest pain. Patient has no other complaints at this time including chest pain, abdominal pain, nausea or vomiting, headache, or visual changes. - Related Data Home Medications Medication Instructions Recorded Confirmed Glycopyrrolate/Formoterol Fum 2 puff INHALATION BID 09/12/19 08/13/20 [Bevespi Aerosphere Inhaler] traMADol HCL [Ultram] 50 mg PO BID 09/12/19 08/13/20 Albuterol Inhaler [Ventolin Hfa 2 puff INHALATION RT-QID 04/26/20 08/13/20 Inhaler] Buprenorphine HCl/Naloxone HCl 1 film SL BID 04/26/20 08/13/20 [Buprenorphine-Nalox 8-2Mg Film] Previous Rx's Medication Instructions Recorded Acetaminophen Tab [Tylenol Tab] 1,000 mg PO Q6HR PRN #30 tablet 08/16/20 Allergies Allergy/AdvReac Type Severity Reaction Status Date / Time hydrocodone [From Vicodin] Allergy Rash/Hives Verified 05/11/21 13:15 ibuprofen [From Motrin] Allergy Nausea, Verified 05/11/21 13:15 vomiting & rash Review of Systems ROS Statement: Those systems with pertinent positive or pertinent negative responses have been documented in the HPI. ROS Other: All systems not noted in ROS Statement are negative. Past Medical History Past Medical History: COPD, Liver Disease, Vascular Disorder Additional Past Medical History / Comment(s): Hepatitis C-treated/cured, has a rare skin condition, lesions with chronic pain especially involving face, PAD, hx.of L inguinal hernia, L groin lipoma, past infections from mediport. History of Any Multi-Drug Resistant Organisms: None Reported Past Surgical History: Appendectomy, Heart Catheterization, Hernia Repair Additional Past Surgical History / Comment(s): EGD, colonoscopy, stent right leg for circulation, mediport & later removed Past Anesthesia/Blood Transfusion Reactions: No Reported Reaction Past Psychological History: Anxiety Smoking Status: Former smoker Past Alcohol Use History: None Reported Past Drug Use History: Marijuana - Past Family History Father Family Medical History: Cancer Additional Family Medical History / Comment(s): Father of pancreatic cancer at the age of 78yrs. Mother Family Medical History: Renal Disease General Exam Limitations: no limitations General appearance: alert, in no apparent distress Head exam: Present: atraumatic Eye exam: Present: normal appearance, PERRL, EOMI. Absent: scleral icterus, co njunctival injection ENT exam: Present: normal exam, mucous membranes moist Neck exam: Present: normal inspection, full ROM. Absent: tenderness Respiratory exam: Present: decreased breath sounds (Diminished lung sounds bilat erally). Absent: respiratory distress (No respiratory distress), accessory muscle use Cardiovascular Exam: Present: regular rate, normal rhythm, normal heart sounds GI/Abdominal exam: Present: soft, normal bowel sounds. Absent: distended, tenderness Course Vital Signs 05/18/21 05/18/21 05/18/21 05:43 06:25 06:30 Temperature 98.4 F Pulse Rate 71 80 84 Respiratory 18 Rate Blood Pressure 136/76 O2 Sat by Pulse 93 L Oximetry 05/18/21 07:02 Temperature Pulse Rate 71 Respiratory 16 Rate Blood Pressure 118/87 O2 Sat by Pulse 95 Oximetry EKG Findings - EKG Comments: EKG Findings:: Sinus rhythm, ventricular rate 85, DE interval 128, QTc 423 Medical Decision Making - Medical Decision Making History of smoking 45 pack per year and PAD. Patient did have a normal cardiac catheterization and echo about 12 months ago vitals are stable. Patient initially 93% on room air. Patient did receive DuoNeb in ambulance and states that helps. On my evaluation he has diminished lung sounds and was given an additional DuoNeb. No associated chest pain. EKG did show several PACs. CBC CMP unremarkable. However troponin is elevated at 0.097. Rotavirus is negative. Chest x-ray is negative. At this time given shortness of breath associated with elevated troponin and his significant risk factors of smoking history and PAD patient will be admitted for cardiology consultation. He will be heparinized. - Lab Data Result diagrams: 05/18/21 06:29 05/18/21 06:29 Lab Results 05/18/21 05/18/21 05/18/21 Range/Units 06:29 06:29 06:29 WBC 5.1 (3.8-10.6) k/uL RBC 4.94 (4.30-5.90) m/uL Hgb 15.5 (13.0-17.5) gm/dL Hct 44.0 (39.0-53.0) % MCV 89.1 (80.0-100.0) fL MCH 31.4 (25.0-35.0) pg MCHC 35.2 (31.0-37.0) g/dL RDW 12.6 (11.5-15.5) % MPV 7.0 Hyperchromasia Slight PT 10.2 (9.0-12.0) sec INR 0.9 (<1.2) APTT 25.1 (22.0-30.0) sec D-Dimer 0.49 (<0.60) mg/L FEU Sodium 137 (137-145) mmol/L Potassium 3.8 (3.5-5.1) mmol/L Chloride 99 (98-107) mmol/L Carbon Dioxide 26 (22-30) mmol/L Anion Gap 12 mmol/L BUN 11 (9-20) mg/dL Creatinine 0.71 (0.66-1.25) mg/dL Est GFR (CKD-EPI)AfAm >90 (>60 ml/min/1.73 sqM) Est GFR (CKD-EPI)NonAf >90 (>60 ml/min/1.73 sqM) Glucose 136 H (74-99) mg/dL Calcium 9.7 (8.4-10.2) mg/dL Magnesium 2.1 (1.6-2.3) mg/dL Total Bilirubin 1.0 (0.2-1.3) mg/dL AST 44 (17-59) U/L ALT 20 (4-49) U/L Alkaline Phosphatase 118 (38-126) U/L Troponin I (0.000-0.034) ng/mL NT-Pro-B Natriuret Pep pg/mL Total Protein 8.9 H (6.3-8.2) g/dL Albumin 4.9 (3.5-5.0) g/dL Coronavirus (PCR) (Not Detectd) 05/18/21 05/18/21 05/18/21 Range/Units 06:29 06:29 06:31 WBC (3.8-10.6) k/uL RBC (4.30-5.90) m/uL Hgb (13.0-17.5) gm/dL Hct (39.0-53.0) % MCV (80.0-100.0) fL MCH (25.0-35.0) pg MCHC (31.0-37.0) g/dL RDW (11.5-15.5) % MPV Hyperchromasia PT (9.0-12.0) sec INR (<1.2) APTT (22.0-30.0) sec D-Dimer (<0.60) mg/L FEU Sodium (137-145) mmol/L Potassium (3.5-5.1) mmol/L Chloride (98-107) mmol/L Carbon Dioxide (22-30) mmol/L Anion Gap mmol/L BUN (9-20) mg/dL Creatinine (0.66-1.25) mg/dL Est GFR (CKD-EPI)AfAm (>60 ml/min/1.73 sqM) Est GFR (CKD-EPI)NonAf (>60 ml/min/1.73 sqM) Glucose (74-99) mg/dL Calcium (8.4-10.2) mg/dL Magnesium (1.6-2.3) mg/dL Total Bilirubin (0.2-1.3) mg/dL AST (17-59) U/L ALT (4-49) U/L Alkaline Phosphatase (38-126) U/L Troponin I 0.097 H* (0.000-0.034) ng/mL NT-Pro-B Natriuret Pep 737 pg/mL Total Protein (6.3-8.2) g/dL Albumin (3.5-5.0) g/dL Coronavirus (PCR) Not Detected (Not Detectd) Disposition Clinical Impression: Dyspnea, Elevated troponin Disposition: ADMITTED IP TO THIS HOSP Is patient prescribed a controlled substance at d/c from ED?: No Referrals: Deandre Thomas MD [Primary Care Provider] - 1-2 days Time of Disposition: 07:52
--- NOTE | 2021-05-18 06:46 | XR ---
EXAMINATION TYPE: XR chest 2V DATE OF EXAM: 05/18/2021 COMPARISON: 05/11/2021 HISTORY: Short of breath TECHNIQUE: FINDINGS: Heart and mediastinum are normal. Lungs are clear. Diaphragm is normal. Bony thorax is inta ct. IMPRESSION: Normal chest. No change.
[2021-05-18 06:49] LABS: Basophils % (A) 0 %; Eosinophils # (A) 0.1 k/uL (0-0.7); Eosinophils % (A) 1 %; HGB 15.5 gm/dL (13.0-17.5); Hyperchromasia Slight; Lymphocytes # (A) 0.5 k/uL (1.0-4.8); Lymphocytes % (A) 10 %; MCH 31.4 pg (25.0-35.0); MCHC 35.2 g/dL (31.0-37.0); MCV 89.1 fL (80.0-100.0); Monocytes # (A) 0.2 k/uL (0-1.0); Monocytes % (A) 4 %; Neutrophils # (A) 4.2 k/uL (1.3-7.7); Neutrophils % (A) 84 %; RBC 4.94 m/uL (4.30-5.90); RDW 12.6 % (11.5-15.5); WBC 5.1 k/uL (3.8-10.6)
[2021-05-18] MEDS ORDERED: LORazepam 2 MG/ML INJ IV STA (06:49)
[2021-05-18] MEDS: methylPREDNISolone SOD SUCCI 125 MG/2 ML VIAL IV STA ×2 (06:56→07:02)
[2021-05-18 07:06] LABS: INR 0.9 (<1.2); Partial Thromboplastin Time 25.1 sec (22.0-30.0); Prothrombin Time 10.2 sec (9.0-12.0)
[2021-05-18 07:12] LABS: ALT 20 U/L (4-49); AST 44 U/L (17-59); African American GFR (CKD) >90 (>60 ml/min/1.73 sqM); Albumin 4.9 g/dL (3.5-5.0); Alkaline Phosphatase 118 U/L (38-126); Anion Gap 12 mmol/L; Blood Urea Nitrogen 11 mg/dL (9-20); Calcium 9.7 mg/dL (8.4-10.2); Carbon Dioxide 26 mmol/L (22-30); Chloride 99 mmol/L (98-107); Glucose 136 mg/dL (74-99); Magnesium 2.1 mg/dL (1.6-2.3); Non-African American GFR(CKD) >90 (>60 ml/min/1.73 sqM); Potassium 3.8 mmol/L (3.5-5.1); Sodium 137 mmol/L (137-145); Total Protein 8.9 g/dL (6.3-8.2)
[2021-05-18] MEDS ORDERED: ACETAMINOPHEN TAB 325 MG TAB PO STA (07:24)
[2021-05-18] MEDS ORDERED: HEPARIN SODIUM 1,000 UN/ML (10ML VL) IV STA (07:47)
[2021-05-18] MEDS ORDERED: HEPARIN SODIUM 1,000 UN/ML (10ML VL) IV PRN (07:47)
[2021-05-18] MEDS ORDERED: ASPIRIN 81 MG PO STA (07:47)
[2021-05-18] MEDS ORDERED: NITROGLYCERIN SL TABS 0.4 MG TAB SUBLINGUAL PRN (07:53)
[2021-05-18] MEDS ORDERED: MORPHINE SULFATE 4 MG/ML SYRINGE IVP STA (08:00)
[2021-05-18 08:08] LABS: Platelet Count 77 k/uL (150-450)
[2021-05-18] MEDS: HEPARIN SOD,PORK IN 0.45% NACL 25,000 UNIT in 0.45% NACL 1 250ML.BAG IV SCH (08:12)
[2021-05-18] MEDS ORDERED: cloNIDine HCL 0.1 MG TAB PO PRN (10:31)
[2021-05-18] MEDS ORDERED: ALBUTEROL NEBULIZED 2.5 MG/3 ML INHALATION PRN (10:31)
--- NOTE | 2021-05-18 10:36 | P.HPIM ---
History of Present Illness H&P Date: 05/18/21 This is a 61-year-old male with past medical history significant for underlying COPD and chronic tobacco use that presented to the emergency room with shortness of breath. Patient said that for the past few days he has been waking up in the middle of the night feeling very short of breath. Patient said that he does not have shortness of breath throughout the day and is able to climb one flight of stairs with no difficulty. He denies any chest pain or discomfort. He denies any productive cough, fevers or chills, or flulike symptoms. Patient smokes approximately 10 cigarettes per day. He was evaluated in the ER and chest x-ray showed no acute findings. Troponin was slightly elevated and 12-lead EKG showed no acute ischemic changes. Patient was seen and evaluated by me in the emergenc y room. He was chest pain-free at the time of my evaluation. Review of Systems Review of system: 14 points review of systems were obtained and were negative except to what were mentioned in the HPI. Past Medical History Past Medical History: COPD, Liver Disease, Vascular Disorder Additional Past Medical History / Comment(s): Hepatitis C-treated/cured, has a rare skin condition, lesions with chronic pain especially involving face, PAD, hx.of L inguinal hernia, L groin lipoma, past infections from mediport. History of Any Multi-Drug Resistant Organisms: None Reported Past Surgical History: Appendectomy, Heart Catheterization, Hernia Repair Additional Past Surgical History / Comment(s): EGD, colonoscopy, stent right leg for circulation, mediport & later removed Past Anesthesia/Blood Transfusion Reactions: No Reported Reaction Past Psychological History: Anxiety Smoking Status: Former smoker Past Alcohol Use History: None Reported Past Drug Use History: Marijuana - Past Family History Father Family Medical History: Cancer Additional Family Medical History / Comment(s): Father of pancreatic cancer at the age of 78yrs. Mother Family Medical History: Renal Disease Medications and Allergies Home Medications Medication Instructions Recorded Confirmed Type Glycopyrrolate/Formoterol Fum 2 puff INHALATION RT-BID 09/12/19 05/18/21 History [Bevespi Aerosphere Inhaler] Albuterol Inhaler [Ventolin Hfa 2 puff INHALATION RT-Q4H PRN 04/26/20 05/18/21 History Inhaler] Buprenorphine HCl/Naloxone HCl 1 film SUBLINGUAL BID 04/26/20 05/18/21 History [Buprenorphine-Nalox 8-2Mg Film] Amoxicillin 500 mg PO Q12HR 05/18/21 05/18/21 History Ipratropium-Albuterol Nebulize 3 ml INHALATION RT-QID 05/18/21 05/18/21 History [Duoneb 0.5 mg-3 mg/3 ml Soln] cloNIDine HCL 0.1 mg PO PC-LUNCH PRN 05/18/21 05/18/21 History cloNIDine HCL [Catapres] 0.1 mg PO BID 05/18/21 05/18/21 History Allergies Allergy/AdvReac Type Severity Reaction Status Date / Time hydrocodone [From Vicodin] Allergy Nausea, Verified 05/18/21 08:01 vomiting & rash ibuprofen [From Motrin] Allergy Nausea, Verified 05/18/21 08:01 vomiting & rash Physical Exam Vitals: Vital Signs Temp Pulse Resp BP Pulse Ox 05/18/21 09:00 70 18 106/60 95 05/18/21 08:16 76 18 138/71 95 05/18/21 07:02 71 16 118/87 95 05/18/21 06:30 84 05/18/21 06:25 80 05/18/21 05:43 98.4 F 71 18 136/76 93 L Intake and Output 05/17/21 05/18/21 05/18/21 22:59 06:59 14:59 Other: Weight 63.503 kg General: The patient is awake and alert, in no distress Eye: there is normal conjunctiva bilaterally. Neck: The neck is supple, there is no JVD. Cardiovascular: Normal S1-S2, no S3-S4, no murmurs. Respiratory: Lungs clear to auscultation bilaterally Gastrointestinal: Abdomen is soft, nontender Musculoskeletal: There is no pedal edema. Neurological:. Speech is normal. Skin: Skin is warm and dry Results CBC & Chem 7: 05/18/21 06:29 05/18/21 06:29 Labs: Abnormal Lab Results - Last 24 Hours (Table) 05/18/21 05/18/21 05/18/21 Range/Units 06:29 06:29 06:29 Plt Count 77 L (150-450) k/uL Lymphocytes # 0.5 L (1.0-4.8) k/uL Glucose 136 H (74-99) mg/dL Troponin I 0.097 H* (0.000-0.034) ng/mL Total Protein 8.9 H (6.3-8.2) g/dL Assessment and Plan Assessment: 1. Elevated troponin, most likely non-thrombotic troponin leak. Patient denies any chest pain. No acute ischemic changes noted on EKG. Patient had a left heart catheterization in April 2020 showing normal coronary arteries. We will continue desk monitor. 10 troponin. Obtain echocardiogram and consult cardiology. 2. Underlying COPD with no evidence of exacerbation 3. Porphyria cutanea tarda 4. History of hepatitis C, treated
[2021-05-18] MEDS: traMADol 50 MG TAB PO PRN (12:32)
[2021-05-18] MEDS: NICOTINE 14MG/24HR PATCH TRANSDERM SCH (13:09)
[2021-05-18] MEDS: IPRATROPIUM-ALBUTEROL 3 ML NEB INHALATION SCH ×3 (15:04→19:23)
[2021-05-18] MEDS ORDERED: NALOXONE HCL SUBLINGUAL PRN (15:45)
[2021-05-18] MEDS ORDERED: BUPRENORPHINE HCL SUBLINGUAL PRN (15:45)
[2021-05-18] MEDS: FORMOTEROL FUMARATE 20 MCG/2 ML NEBU INHALATION SCH (19:22)
[2021-05-18] MEDS: cloNIDine HCL 0.1 MG TAB PO SCH (20:01)
[2021-05-18] MEDS ORDERED: ZOLPIDEM 5 MG TAB PO PRN (20:04)
[2021-05-19] MEDS: traMADol 50 MG TAB PO PRN (04:12)
[2021-05-19] MEDS: IPRATROPIUM-ALBUTEROL 3 ML NEB INHALATION SCH ×2 (07:42→11:14)
[2021-05-19] MEDS: FORMOTEROL FUMARATE 20 MCG/2 ML NEBU INHALATION SCH (07:42)
[2021-05-19 07:45] VITALS: RESP 18
[2021-05-19] MEDS ORDERED: ASPIRIN 325 MG TAB PO SCH (09:00)
[2021-05-19] MEDS: NICOTINE 14MG/24HR PATCH TRANSDERM SCH (09:00)
[2021-05-19] MEDS: cloNIDine HCL 0.1 MG TAB PO SCH (09:00)
[2021-05-19] MEDS ORDERED: REGADENOSON 0.4 MG/5 ML SYRINGE IV PRN (09:15)
[2021-05-19] MEDS ORDERED: CAFFEINE CITRATE 60 MG/3 ML VIAL IV PRN (09:15)
[2021-05-19] MEDS ORDERED: AMINOPHYLLINE 500 MG/20 ML VIAL IV PRN (09:15)
--- NOTE | 2021-05-19 10:00 | P.CRDCN ---
History of Present Illness History of present illness: HISTORY OF PRESENTING ILLNESS This is a pleasant 61-year-old male past medical history significant for pophyria tarda cutaneous, peripheral vascular disease s/p stent placement to the right common iliac 2008, COPD, thrombocytopenia, hepatitis C, hypertension and chronic nicotine dependence. He follows in the office with Dr. Bob. We have been asked to see in consultation for shortness of breath with elevated troponin. He states he has been feeling short of breath. Sunday night he woke up feeling short of breath again. Associated with palpitations and rapid heart beat with some dizziness. Sometimes feels discomfort in the chest as well. No specific aggravating or alleviating factors. He is currently breathing stable with no verbalized shortness of breath. He denies chest pain, dizziness or palpitations since admission. He underwent cardiac catheterization 04/2020 revealing overall no obstructive disease with mild luminal irregularities of the LAD. Echocardiogram obtained at that time revealed preserved LV systolic function with EF 55-60%. DIAGNOSTICS EKG reveals sinus rhythm with APCs, no evidence of ischemia. Telemetry tracings indicate sinus rhythm with no significant arrhythmia. Chest xray negative for an acute cardiopulmonary process. Laboratory reviewed, WBC 5.1, hgb 15.5, plt 77, d-dimer 0.49, sodium 137, potassium 3.8, creatinine 0.71, troponin 0.097, 0.082, 0.055 and proBNP 737. Current cardiac medications include clonidine 0.1 mg BID. REVIEW OF SYSTEMS At the time of my exam: CONSTITUTIONAL: Denies fever or chills. CARDIOVASCULAR: Denies chest pain, shortness of breath, orthopnea, PND or palpitations. RESPIRATORY: Denies cough. GASTROINTESTINAL: Denies abdominal pain, diarrhea, constipation, nausea or vomiting. MUSCULOSKELETAL: Denies myalgias. NEUROLOGIC: Denies numbness, tingling, headache or weakness. ENDOCRINE: Denies fatigue, weight change, polydipsia or polyurina. GENITOURINARY: Denies burning, hematuria or urgency with micturation. HEMATOLOGIC: Denies history of anemia or bleeding. PHYSICAL EXAMINATION Blood pressure 149/87 heart rate 88 afebrile and maintaining oxygen saturation on room air. CONSTITUTIONAL: No apparent distress. Frail. Multiple open sore lesions noted on visualized skin. HEENT: Head is normocephalic. Pupils are equal, round. Sclerae anicteric. Mucous membranes of the mouth are moist. No JVD. No carotid bruit. CHEST EXAMINATION: Lungs are clear to auscultation. No chest wall tenderness is noted on palpation or with deep breathing. HEART EXAMINATION: Regular rate and rhythm. S1, S2 heard. No murmurs, gallops or rub. ABDOMEN: Soft, nontender. EXTREMITIES: 2+ peripheral pulses, no lower extremity edema and no calf tenderness. NEUROLOGIC EXAMINATION: Patient is awake, alert and oriented x3. ASSESSMENT Shortness of breath Flat troponin leak of unclear significance Hypertension Peripheral vascular disease Thrombocytopenia COPD Chronic nicotine dependence PLAN Troponin elevation of unclear etiology. He had no obstructive CAD less than 1-yr ago. At that time, his breathing was thought to be related to underlying pulmonary etiology. He has not seen and supply chain assistant as an outpatient and he has unfortunately gone back to smoking. Recommend pulmonary evaluation. Discontinue heparin infusion. Decrease aspirin to 81 mg daily. Given his history of luminal irregularities and PAD, suggest low dose statins. Echocardiogram has been obtained and preliminarily reviewed, no wall motion abnormalities noted. Perform Lexiscan stress test to assess for reversibility. Thank you kindly for this consultation. Nurse Practitioner note has been reviewed, I agree with a documented findings and plan of care. Patient was seen and examined. Past Medical History Past Medical History: COPD, Liver Disease, Vascular Disorder Additional Past Medical History / Comment(s): Hepatitis C-treated/cured, has a rare skin condition, lesions with chronic pain especially involving face, PAD, hx.of L inguinal hernia, L groin lipoma, past infections from mediport. History of Any Multi-Drug Resistant Organisms: None Reported Past Surgical History: Appendectomy, Heart Catheterization, Hernia Repair Additional Past Surgical History / Comment(s): EGD, colonoscopy, stent right leg for circulation, mediport & later removed Past Anesthesia/Blood Transfusion Reactions: No Reported Reaction Past Psychological History: Anxiety Smoking Status: Former smoker Past Alcohol Use History: None Reported Past Drug Use History: Marijuana - Past Family History Father Family Medical History: Cancer Additional Family Medical History / Comment(s): Father of pancreatic cancer at the age of 78yrs. Mother Family Medical History: Renal Disease Medications and Allergies Home Medications Medication Instructions Recorded Confirmed Type Glycopyrrolate/Formoterol Fum 2 puff INHALATION RT-BID 09/12/19 05/18/21 History [Bevespi Aerosphere Inhaler] Albuterol Inhaler [Ventolin Hfa 2 puff INHALATION RT-Q4H PRN 04/26/20 05/18/21 History Inhaler] Buprenorphine HCl/Naloxone HCl 1 film SUBLINGUAL BID 04/26/20 05/18/21 History [Buprenorphine-Nalox 8-2Mg Film] Amoxicillin 500 mg PO Q12HR 05/18/21 05/18/21 History Ipratropium-Albuterol Nebulize 3 ml INHALATION RT-QID 05/18/21 05/18/21 History [Duoneb 0.5 mg-3 mg/3 ml Soln] cloNIDine HCL 0.1 mg PO PC-LUNCH PRN 05/18/21 05/18/21 History cloNIDine HCL [Catapres] 0.1 mg PO BID 05/18/21 05/18/21 History Allergies Allergy/AdvReac Type Severity Reaction Status Date / Time hydrocodone [From Vicodin] Allergy Nausea, Verified 05/18/21 08:01 vomiting & rash ibuprofen [From Motrin] Allergy Nausea, Verified 05/18/21 08:01 vomiting & rash Physical Exam Vitals: Vital Signs Temp Pulse Pulse Resp BP BP Pulse Ox 05/19/21 08:04 88 18 05/19/21 07:54 84 18 05/19/21 07:43 88 18 05/19/21 04:00 97.7 F 83 16 149/87 94 L 05/19/21 00:00 97.8 F 65 18 112/65 96 05/18/21 20:00 97.7 F 88 18 148/76 95 05/18/21 19:31 86 05/18/21 19:23 80 05/18/21 16:13 80 05/18/21 16:03 80 05/18/21 16:00 97.5 F L 85 18 122/73 96 05/18/21 14:00 71 18 05/18/21 12:59 97.8 F 71 18 163/83 97 05/18/21 12:00 97.7 F 92 18 147/95 98 05/18/21 09:00 70 18 106/60 95 Intake and Output 05/18/21 05/19/21 05/19/21 22:59 06:59 14:59 Intake Total 480 0 Balance 480 0 Intake: Oral 480 0 Other: Voiding Method Toilet Toilet # Voids 2 2 Weight 60.2 kg Results 05/18/21 06:29 05/18/21 06:29 Cardiac Enzymes 05/18/21 05/18/21 Range/Units 09:24 12:24 Troponin I 0.082 H* 0.055 H* (0.000-0.034) ng/mL Coagulation 05/18/21 Range/Units 14:15 APTT 48.9 H (22.0-30.0) sec Current Medications Generic Name Dose Route Start Last Admin Trade Name Freq PRN Reason Stop Dose Admin Albuterol Sulfate 2.5 mg 05/18/21 10:31 Albuterol Nebulized 2.5 Mg/3 Ml INHALATION RT-Q4H PRN Shortness Of Breath Albuterol/Ipratropium 3 ml 05/18/21 12:00 05/19/21 07:42 Ipratropium-Albuterol 3 Ml Neb INHALATION 3 ml RT-QID SHAYY Administration Aspirin 325 mg 05/19/21 09:00 Aspirin 325 Mg Tab PO DAILY SHAYY Clonidine 0.1 mg 05/18/21 21:00 05/18/21 20:01 Clonidine Hcl 0.1 Mg Tab PO 0.1 mg BID SHAYY Administration Clonidine 0.1 mg 05/18/21 10:31 Clonidine Hcl 0.1 Mg Tab PO PC-LUNCH PRN Anxiety Formoterol Fumarate 20 mcg 05/18/21 20:00 05/19/21 07:42 Formoterol Fumarate 20 Mcg/2 Ml Nebu INHALATION 20 mcg RT-BID SHAYY Administration Heparin Sodium (Porcine) 0 unit 05/18/21 07:47 Heparin Sodium 1,000 Un/Ml (10ml Vl) IV PER PROTOCOL PRN Low PTT Protocol Heparin Sodium/Sodium Chloride 250 mls @ 7.62 mls/hr 05/18/21 08:00 05/18/21 08:12 25,000 unit/ Sodium Chloride IV 12 units/kg/hr .Q24H SHAYY 7.62 mls/hr Administration Protocol 12 UNITS/KG/HR Nicotine 1 patch 05/18/21 12:45 05/18/21 13:09 Nicotine 14mg/24hr Patch TRANSDERM 1 patch DAILY SHAYY Administration Nitroglycerin 0.4 mg 05/18/21 07:53 Nitroglycerin Sl Tabs 0.4 Mg Tab SUBLINGUAL Q5M PRN Chest Pain Buprenorphine Hcl/ 1 film 05/18/21 15:45 05/18/21 17:27 Naloxone Hcl [ SUBLINGUAL 1 film Buprenorphine-Nalox TID PRN Administration 8-2mg Film] 1 Each WITHDRAWAL Tramadol HCl 50 mg 05/18/21 12:08 05/19/21 04:12 Tramadol 50 Mg Tab PO 50 mg Q6HR PRN Administration Pain Zolpidem Tartrate 5 mg 05/18/21 20:04 05/18/21 21:26 Zolpidem 5 Mg Tab PO 5 mg HS PRN Administration Insomnia Intake and Output 05/18/21 05/19/21 05/19/21 22:59 06:59 14:59 Intake Total 480 0 Balance 480 0 Intake: Oral 480 0 Other: Voiding Method Toilet Toilet # Voids 2 2 Weight 60.2 kg 05/18/21 06:29 05/18/21 06:29
[2021-05-19 10:25] VITALS: TEMP 98.2
[2021-05-19 10:57] LABS: Chol/HDL Ratio 2.47; LDL Cholesterol,Calculated 94.6 mg/dL (0.0-131.0); VLDL Calculation 14.4 mg/dL (5.00-40.00)
--- NOTE | 2021-05-19 11:31 | ECHOF ---
Referral Reason:nstemi MEASUREMENTS -------- HEIGHT: 175.3 cm WEIGHT: 63.5 kg BP: RVIDd: 3.4 cm (< 3.3) IVSd: 1.3 cm (0.6 - 1.1) LVIDd: 4.0 cm (3.9 - 5.3) LVPWd: 1.4 cm (0.6 - 1.1) IVSs: 1.8 cm LVIDs: 2.6 cm LVPWs: 1.5 cm LA Diam: 3.4 cm (2.7 - 3.8) Ao Diam: 3.3 cm (2.0 - 3.7) AV Cusp: 1.2 cm (1.5 - 2.6) MV EXCURSION: 20.130 mm (> 18.000) MV EF SLOPE: 72 mm/s (70 - 150) EPSS: 0.9 cm MV E Terrence: 0.43 m/s MV DecT: 173 ms MV A Terrence: 0.63 m/s MV E/A Ratio: 0.68 RAP: 5.00 mmHg RVSP: 20.23 mmHg FINDINGS -------- Sinus rhythm. This was a technically adequate study. The left ventricular size is normal. There is mild concentric left ventricular hypertrophy. Overa ll left ventricular systolic function is normal with, an EF between 55 - 60 %. The right ventricle is mildly enlarged. The left atrial size is normal. The right atrial size is normal. There is mild aortic valve sclerosis. The mitral valve is normal. Mild mitral regurgitation is present. The tricuspid valve appears structurally normal. Mild tricuspid regurgitation present. Right vent ricular systolic pressure is normal at < 35 mmHg. There is no pulmonic regurgitation present. The aortic root size is normal. Echo free space represents a pericardial fat pad. CONCLUSIONS -------- 1. There is mild concentric left ventricular hypertrophy. 2. Overall left ventricular systolic function is normal with, an EF between 55 - 60 %. 3. The right ventricle is mildly enlarged. 4. The left atrial size is normal. 5. There is mild aortic valve sclerosis. 6. Mild mitral regurgitation is present. 7. Mild tricuspid regurgitation present. 8. Echo free space represents a pericardial fat pad. MEDICAL SALES CONSULTANT: Lida Galindo RDCS
[2021-05-19] MEDS: HEPARIN SOD,PORK IN 0.45% NACL 25,000 UNIT in 0.45% NACL 1 250ML.BAG IV SCH (11:37)
[2021-05-19 12:32] VITALS: BP 121/68; PULSE 84
--- NOTE | 2021-05-19 12:38 | NM ---
EXAMINATION TYPE: NM stress lexiscan cardiolite DATE OF EXAM: 05/19/2021 COMPARISON: NONE HISTORY: Chest pain TECHNIQUE: After the intravenous administration of 9.2 mCi Tc 99m Sestamibi - Cardiolite resting SPE CT images acquired 45 minutes post injection. The patient received 0.4mg Lexiscan, 24.2 mCi Tc 99m Sestamibi - Stress images obtained [address] injection FINDINGS: Review of stress and rest SPECT images demonstrates no distinct perfusion abnormality. A small defect involving the myocardium Gated analysis shows normal wall motion with an estimated le ft ventricular ejection fraction of 52 %. IMPRESSION: No scintigraphic evidence for reversible
--- NOTE | 2021-05-19 13:32 | P.DS ---
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 Patient was evaluated in the ER and chest x-ray showed no acute findings. He had a mild troponin elevation. He did not have any chest pain. ACS ruled out. Twelve-lead EKG showed no acute ischemic changes. She was seen and evaluated by cardiology. He underwent echocardiogram showing preserved ejection fraction of 55-60% and no significant valvular or wall motion abnormalities. Patient also underwent a cardiac stress test that was negative. He was cleared for discharge home. Start Lipitor 20 mg daily. LDL of 94. Follow-up with PCP as directed. Patient was counseled extensively regarding tobacco cessation. Patient was seen and evaluated by me on the day of discharge. Physical exam: General: The patient is awake and alert, in no distress Eye: there is normal conjunctiva bilaterally. Neck: The neck is supple, there is no JVD. Cardiovascular: Normal S1-S2, no S3-S4, no murmurs. Respiratory: Lungs clear to auscultation bilaterally Gastrointestinal: Abdomen is soft, nontender Musculoskeletal: There is no pedal edema. Neurological:. Speech is normal. Skin: Skin is warm and dry Plan - Discharge Summary New Discharge Prescriptions: New Atorvastatin [Lipitor] 20 mg PO HS #30 tab Continue Glycopyrrolate/Formoterol Fum [Bevespi Aerosphere Inhaler] 2 puff INHALATION RT-BID Buprenorphine HCl/Naloxone HCl [Buprenorphine-Nalox 8-2Mg Film] 1 film SUBLINGUAL BID Albuterol Inhaler [Ventolin Hfa Inhaler] 2 puff INHALATION RT-Q4H PRN PRN Reason: Shortness Of Breath Ipratropium-Albuterol Nebulize [Duoneb 0.5 mg-3 mg/3 ml Soln] 3 ml INHALATION RT-QID Amoxicillin 500 mg PO Q12HR cloNIDine HCL 0.1 mg PO PC-LUNCH PRN PRN Reason: Anxiety cloNIDine HCL [Catapres] 0.1 mg PO BID Discharge Medication List Glycopyrrolate/Formoterol Fum [Bevespi Aerosphere Inhaler] 2 puff INHALATION RT- BID 09/12/19 [History] Albuterol Inhaler [Ventolin Hfa Inhaler] 2 puff INHALATION RT-Q4H PRN 04/26/20 [History] Buprenorphine HCl/Naloxone HCl [Buprenorphine-Nalox 8-2Mg Film] 1 film SUBLINGUAL BID 04/26/20 [History] Amoxicillin 500 mg PO Q12HR 05/18/21 [History] Ipratropium-Albuterol Nebulize [Duoneb 0.5 mg-3 mg/3 ml Soln] 3 ml INHALATION RT-QID 05/18/21 [History] cloNIDine HCL 0.1 mg PO PC-LUNCH PRN 05/18/21 [History] cloNIDine HCL [Catapres] 0.1 mg PO BID 05/18/21 [History] Atorvastatin [Lipitor] 20 mg PO HS #30 tab 05/19/21 [Rx] Follow up Appointment(s)/Referral(s): Deandre Thomas MD [Primary Care Provider] - 1-2 days Discharge Disposition: HOME SELF-CARE
[2021-05-19] MEDS ORDERED: ATORVASTATIN 20 MG TAB PO SCH (21:00)
[2021-05-20] MEDS ORDERED: ASPIRIN 81 MG PO SCH (09:00)
--- NOTE | 2021-05-20 10:48 | EST ---
EXERCISE STRESS AGE: 61 SEX: M HT: 5'9" WT: 132 lbs. PROTOCOL: Lexiscan STAGE: NA DURATION OF EXERCISE: 5 minutes HEART RATE REST: 57 BLOOD PRESSURE REST: 104/44 MAXIMUM HEART RATE ACHIEVED: 95 MAXIMUM BLOOD PRESSURE: 104/44 85% MPHR: 133 100% MPHR: 157 METS: NA INDICATIONS: Elevated Troponin CLINICAL INFORMATION: Baseline rhythm is a sinus mechanism, rate of 57, occasional PACs, nonspecific ST-T wave changes. Baseline blood pressure 104/44 mmHg. Patient received an injection of Lexiscan. Electrocardiographic monitoring revealed no evidence of diagnostic ischemic ST deviation. Cardiolite was injected per protocol. CONCLUSION: 1. Nondiagnostic electrocardiograph stress testing. 2. Occasional PACs. 3. Nuclear images will be reported separately. MMODL / IJN: [id number] /
== END 2021-05-19 15:19 | disposition home or self-care (01) ==
LOC: EC 05:41 → 3SCARD 08:05
PROVIDERS: ADMIT Internal Medicine; ATTEND Internal Medicine
DX: R79.89 Other specified abnormal findings of blood chemistry (principal); J44.9 Chronic obstructive pulmonary disease, unspecified; E80.1 Porphyria cutanea tarda; I49.1 Atrial premature depolarization; I10 Essential (primary) hypertension; D69.6 Thrombocytopenia, unspecified; I73.9 Peripheral vascular disease, unspecified; F41.9 Anxiety disorder, unspecified; F17.210 Nicotine dependence, cigarettes, uncomplicated; G89.29 Other chronic pain; D17.39 Benign lipomatous neoplasm of skin and subcutaneous tissue of other sites; Z20.822 Contact with and (suspected) exposure to COVID-19; Z79.899 Other long term (current) drug therapy; Z88.5 Allergy status to narcotic agent; Z88.6 Allergy status to analgesic agent; Z95.820 Peripheral vascular angioplasty status with implants and grafts; Z86.19 Personal history of other infectious and parasitic diseases; Z90.49 Acquired absence of other specified parts of digestive tract; Z98.890 Other specified postprocedural states; Z80.0 Family history of malignant neoplasm of digestive organs
CPT/HCPCS: 96366 ×3; 96376; 96365; 96375; 99285; 36415; 94640 ×4; 93005; 93017; 93306; 85379; 83880; 80061; 80053; 83735; 84484; 85025; 85610; 85730; 87635; 71046; 78452; G0378 ×2; A9500; S4990 ×2; J2060; J2270; J1644 ×2; J2785

== ENCOUNTER 2021-07-20 09:40 | Inpatient (IN) | payer MEDICARE, OTHER ==
[2021-07-20] MEDS ORDERED: KETOROLAC 30 MG/ML 1 ML VIAL IVP STA (12:28)
[2021-07-20 12:33] LABS: Appearance,Urine Clear (Clear); Bilirubin,Urine Negative (Negative); Blood,Urine Negative (Negative); Color,Urine Yellow; Glucose,Urine (UA) Negative (Negative); Ketones,Urine Negative (Negative); Leukocyte Esterase,Urine Negative (Negative); Nitrite,Urine Negative (Negative); PH, Urine 7.5 (5.0-8.0); Protein,Urine Negative (Negative); Specific Gravity,Urine 1.008 (1.001-1.035)
[2021-07-20 12:36] LABS: INR 0.9 (<1.2); Prothrombin Time 10.2 sec (9.0-12.0)
[2021-07-20 12:38] LABS: ALT 15 U/L (4-49); AST 76 U/L (17-59); African American GFR (CKD) >90 (>60 ml/min/1.73 sqM); Albumin 4.4 g/dL (3.5-5.0); Alkaline Phosphatase 140 U/L (38-126); Amylase 70 U/L (30-110); Anion Gap 10 mmol/L; Blood Urea Nitrogen 9 mg/dL (9-20); Calcium 9.5 mg/dL (8.4-10.2); Carbon Dioxide 29 mmol/L (22-30); Chloride 94 mmol/L (98-107); Glucose 120 mg/dL (74-99); Lipase 35 U/L (23-300); Non-African American GFR(CKD) >90 (>60 ml/min/1.73 sqM); Potassium 4.4 mmol/L (3.5-5.1); Sodium 133 mmol/L (137-145); Total Bilirubin 1.6 mg/dL (0.2-1.3); Total Protein 8.6 g/dL (6.3-8.2)
--- NOTE | 2021-07-20 13:08 | CT ---
EXAMINATION TYPE: CT abdomen pelvis w con DATE OF EXAM: 07/20/2021 COMPARISON: 08/08/2019 HISTORY: RUQ pain and swelling CT DLP: 687.4 mGycm CONTRAST: CT scan of the abdomen and pelvis is performed without Oral Contrast and with IV Contrast, patient in jected with 50 mL of Isovue 300. FINDINGS: LUNG BASES-: No visible nodule. No infiltrate. LIVER/GB: No calcified gallstones. There is micronodular peripheral hepatic contour suggesting und erlying cirrhotic liver disease. There is fullness of the left hepatic lobe with ill-defined attenuat ion noted. Underlying mass is difficult to exclude. Correlate with ultrasound. Biliary tree is of nor mal caliber. PANCREAS: No inflammation. No distinct mass. SPLEEN: There is evidence of splenomegaly with craniocaudal measurement of 20.9 cm. ADRENALS: No nodule. No thickening. KIDNEYS/BLADDER: No hydronephrosis. No nephrolithiasis. No distinct renal mass. Urinary bladder g rossly unremarkable. BOWEL: Normal appendix. Normal bowel caliber. No inflammation. GENITAL ORGANS: No gross abnormality. LYMPH NODES: No greater than 1cm abdominal or pelvic lymph nodes are appreciated. AORTA: Diffuse atheromatous change of the abdominal aorta especially distally where there is high-gra de stenosis. Right common iliac stent is in place. OSSEOUS STRUCTURES: No significant abnormality is seen. OTHER: No significant additional abnormality is seen. IMPRESSION: 1. Cirrhotic liver disease with splenomegaly. 2. Mass left hepatic lobe is difficult to exclude as there is fullness and mild decreased attenuation .
[2021-07-20 13:54] LABS: Basophils % (A) 0 %; Eosinophils # (A) 0.1 k/uL (0-0.7); Eosinophils % (A) 1 %; HCT 35.2 % (39.0-53.0); HGB 12.6 gm/dL (13.0-17.5); Hyperchromasia Slight; Lymphocytes # (A) 0.4 k/uL (1.0-4.8); Lymphocytes % (A) 7 %; MCH 31.5 pg (25.0-35.0); MCV 87.5 fL (80.0-100.0); Mean Platelet Volume 7.8; Monocytes # (A) 0.3 k/uL (0-1.0); Monocytes % (A) 6 %; Neutrophils # (A) 4.3 k/uL (1.3-7.7); Neutrophils % (A) 84 %; RBC 4.02 m/uL (4.30-5.90); WBC 5.2 k/uL (3.8-10.6)
[2021-07-20 13:58] LABS: Platelet Count 121 k/uL (150-450)
--- NOTE | 2021-07-20 14:08 | US ---
EXAMINATION TYPE: US liver DATE OF EXAM: 07/20/2021 COMPARISON: 09/07/2020 CLINICAL HISTORY: mass, pain, abnormal CT. History of Resolved Hep C EXAM MEASUREMENTS: Liver Length: 18.4 cm, measurement may under represent true size Gallbladder Wall: 0.3 cm CBD: 0.6 cm Right Kidney: 10.5x4.7x3.9 cm main portal vein thrombus extending to left portal vein, low-level internal echoes are present. Quest ion some color flow along the left portal vein echogenic material, consider tumor thrombus. Grayscale , color Doppler, spectral Doppler imaging performed. Pancreas: Echogenic, prominent duct 0.3cm Liver: Left lobe heterogenous Gallbladder: wnl Evidence for sonographic Whitt's sign: No CBD: Within normal limits Right Kidney: wnl IMPRESSION: Constellation of findings consistent with portal vein thrombus, possible underlying hepat maximo left lobe of the liver, consider liver MRI for additional evaluation with and without contrast
[2021-07-20] MEDS ORDERED: NALOXONE 0.4 MG/ML 1 ML VIAL IV PRN (15:01)
[2021-07-20] MEDS ORDERED: ONDANSETRON 4 MG/2 ML VIAL IVP PRN (15:01)
--- NOTE | 2021-07-20 15:01 | ED ---
Abdominal Pain HPI - General Chief Complaint: Abdominal Pain Stated Complaint: Abdominal pain Time Seen by Provider: 07/20/21 10:58 Source: patient, RN notes reviewed, old records reviewed Mode of arrival: ambulatory Limitations: no limitations - History of Present Illness Initial Comments: Patient is a 61-year-old male with history of COPD, liver disease, vascular disorder, presenting to the emergency department with concerns of possible constipation. He states for the last 3 days he has been having some right-sided abdominal pain and feels a mass on the right side and has not been having normal bowel movements. He states he normally goes once a day but has only been going once every other day. His last bowel movement was this morning but it was a small amount. He states this mass that he is feeling is tender to the touch and has not been there in the past. He does have history of hepatitis C, it was treated a few years ago. He states he has followed with ROLANDA Gaxiola, who had an ultrasound of his liver earlier this year and everything appeared normal. Patient denies any fevers or chills, no cough or congestion. He admits to h ernia repair, appendectomy, no other abdominal surgeries. 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 He occasionally drinks alcohol. Patient has no further complaints at this time. 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 It is waiting for him at the pharmacy. - Related Data Home Medications Medication Instructions Recorded Confirmed Albuterol Inhaler [Ventolin Hfa 2 puff INHALATION RT-Q4H PRN 04/26/20 07/20/21 Inhaler] Ipratropium-Albuterol Nebulize 3 ml INHALATION RT-QID 05/18/21 07/20/21 [Duoneb 0.5 mg-3 mg/3 ml Soln] ALPRAZolam [Xanax] 0.5 mg PO DAILY PRN 07/20/21 07/20/21 Budesonide/Glycopyr/Formoterol 2 puff INHALATION RT-BID 07/20/21 07/20/21 [Breztri Aerosphere Inhaler] Buprenorphine HCl/Naloxone HCl 1 film SL BID 07/20/21 07/20/21 [Suboxone 8 mg-2 mg Sl Film] Losartan [Cozaar] 25 mg PO DAILY 07/20/21 07/20/21 Allergies Allergy/AdvReac Type Severity Reaction Status Date / Time hydrocodone [From Vicodin] Allergy Nausea, Verified 07/20/21 15:29 vomiting & rash ibuprofen [From Motrin] Allergy Nausea, Verified 07/20/21 15:29 vomiting & rash Review of Systems ROS Statement: Those systems with pertinent positive or pertinent negative responses have been documented in the HPI. ROS Other: All systems not noted in ROS Statement are negative. Past Medical History Past Medical History: COPD, Liver Disease, Vascular Disorder Additional Past Medical History / Comment(s): Hepatitis C-treated/cured, has a rare skin condition, lesions with chronic pain especially involving face, PAD, hx.of L inguinal hernia, L groin lipoma, past infections from mediport. History of Any Multi-Drug Resistant Organisms: None Reported Past Surgical History: Appendectomy, Heart Catheterization, Hernia Repair Additional Past Surgical History / Comment(s): EGD, colonoscopy, stent right leg for circulation, mediport & later removed Past Anesthesia/Blood Transfusion Reactions: No Reported Reaction Past Psychological History: Anxiety Smoking Status: Former smoker Past Alcohol Use History: None Reported Past Drug Use History: Marijuana - Past Family History Father Family Medical History: Cancer Additional Family Medical History / Comment(s): Father of pancreatic cancer at the age of 78yrs. Mother Family Medical History: Renal Disease General Exam - General Exam Comments Initial Comments: GENERAL: Patient is well-developed and well-nourished. Patient is nontoxic and in no acute distress. HEAD: Atraumatic, normocephalic. EYES: Pupils equal round and reactive to light, extraocular movements intact, sclera anicteric, conjunctiva are normal. Eyelids were unremarkable. ENT: Moist mucous membranes. NECK: Normal range of motion, supple without lymphadenopathy or JVD. LUNGS: Unlabored respirations. Breath sounds clear to auscultation bilaterally and equal. No wheezes rales or rhonchi. HEART: Regular rate and rhythm without murmurs, rubs or gallops. ABDOMEN: Patient is tender to palpation of the right side of the abdomen, there is an approximate 2-3 cm mass noted in the right upper quadrant, this is tender to the touch. He does have normal active bowel sounds. : Deferred MUSCULOSKELETAL: Normal extremities with adequate strength and normal range of motion, no pitting or edema. No clubbing or cyanosis. NEUROLOGICAL: Patient is alert and oriented x 3. Motor and sensory are also intact. Cranial nerves II through XII grossly intact. Symmetrical smile. Normal speech, normal gait. PSYCH: Normal mood, normal affect. SKIN: Warm, Dry, normal turgor. Patient has numerous skin rashes that are chronic in nature, since after being treated for hepatitis C. He states these are chronic and not worsening. Limitations: no limitations Course Vital Signs 07/20/21 07/20/21 09:57 16:31 Temperature 98.6 F Pulse Rate 101 H 59 L Respiratory 18 20 Rate Blood Pressure 187/96 163/80 O2 Sat by Pulse 97 99 Oximetry Medical Decision Making - Medical Decision Making Patient is a 61-year-old male with history of liver disease, COPD, presenting for right upper quadrant pain and a mass felt. He states has been there for 3 days. He is hypertensive upon arrival at 187/96 however he was just prescribed medication that was to be picked up and started today. Labs show a normal white count, hemoglobin is slightly lower at 12.2 then a few months ago. Platelets are 121 which is baseline. Total bili is 1.6. Urine is normal. Given the mass, I did order a CT the abdomen and pelvis shows cirrhotic liver disease with splenomegaly, there is a left hepatic mass, which they recommended ultrasound for further detail. Ultrasound reveals findings consistent with portal vein thrombus, possible underlying hepatoma, they recommend liver MRI. I did attempt to transfer this patient secondary to not having GI coverage here however, none of the local hospitals including [facility] and [facility] are not accepting patients at this time. Dr. Rivers is willing to accept this patient. Case discussed in detail with Dr. Sullivan. - Lab Data Result diagrams: 07/20/21 11:37 07/20/21 11:37 Lab Results 07/20/21 07/20/21 07/20/21 Range/Units 11:37 11:37 11:37 WBC 5.2 (3.8-10.6) k/uL RBC 4.02 L (4.30-5.90) m/uL Hgb 12.6 L (13.0-17.5) gm/dL Hct 35.2 L (39.0-53.0) % MCV 87.5 (80.0-100.0) fL MCH 31.5 (25.0-35.0) pg MCHC 36.0 (31.0-37.0) g/dL RDW 13.0 (11.5-15.5) % Plt Count 121 L D (150-450) k/uL MPV 7.8 Neutrophils % 84 % Lymphocytes % 7 % Monocytes % 6 % Eosinophils % 1 % Basophils % 0 % Neutrophils # 4.3 (1.3-7.7) k/uL Lymphocytes # 0.4 L (1.0-4.8) k/uL Monocytes # 0.3 (0-1.0) k/uL Eosinophils # 0.1 (0-0.7) k/uL Basophils # 0.0 (0-0.2) k/uL Hyperchromasia Slight PT 10.2 (9.0-12.0) sec INR 0.9 (<1.2) APTT 22.0 (22.0-30.0) sec Sodium 133 L (137-145) mmol/L Potassium 4.4 (3.5-5.1) mmol/L Chloride 94 L (98-107) mmol/L Carbon Dioxide 29 (22-30) mmol/L Anion Gap 10 mmol/L BUN 9 (9-20) mg/dL Creatinine 0.67 (0.66-1.25) mg/dL Est GFR (CKD-EPI)AfAm >90 (>60 ml/min/1.73 sqM) Est GFR (CKD-EPI)NonAf >90 (>60 ml/min/1.73 sqM) Glucose 120 H (74-99) mg/dL Calcium 9.5 (8.4-10.2) mg/dL Total Bilirubin 1.6 H (0.2-1.3) mg/dL AST 76 H (17-59) U/L ALT 15 (4-49) U/L Alkaline Phosphatase 140 H (38-126) U/L Total Protein 8.6 H (6.3-8.2) g/dL Albumin 4.4 (3.5-5.0) g/dL Amylase 70 (30-110) U/L Lipase 35 (23-300) U/L Urine Color Urine Appearance (Clear) Urine pH (5.0-8.0) Ur Specific Hensel (1.001-1.035) Urine Protein (Negative) Urine Glucose (UA) (Negative) Urine Ketones (Negative) Urine Blood (Negative) Urine Nitrite (Negative) Urine Bilirubin (Negative) Urine Urobilinogen (<2.0) mg/dL Ur Leukocyte Esterase (Negative) 07/20/21 Range/Units 12:18 WBC (3.8-10.6) k/uL RBC (4.30-5.90) m/uL Hgb (13.0-17.5) gm/dL Hct (39.0-53.0) % MCV (80.0-100.0) fL MCH (25.0-35.0) pg MCHC (31.0-37.0) g/dL RDW (11.5-15.5) % Plt Count (150-450) k/uL MPV Neutrophils % % Lymphocytes % % Monocytes % % Eosinophils % % Basophils % % Neutrophils # (1.3-7.7) k/uL Lymphocytes # (1.0-4.8) k/uL Monocytes # (0-1.0) k/uL Eosinophils # (0-0.7) k/uL Basophils # (0-0.2) k/uL Hyperchromasia PT (9.0-12.0) sec INR (<1.2) APTT (22.0-30.0) sec Sodium (137-145) mmol/L Potassium (3.5-5.1) mmol/L Chloride (98-107) mmol/L Carbon Dioxide (22-30) mmol/L Anion Gap mmol/L BUN (9-20) mg/dL Creatinine (0.66-1.25) mg/dL Est GFR (CKD-EPI)AfAm (>60 ml/min/1.73 sqM) Est GFR (CKD-EPI)NonAf (>60 ml/min/1.73 sqM) Glucose (74-99) mg/dL Calcium (8.4-10.2) mg/dL Total Bilirubin (0.2-1.3) mg/dL AST (17-59) U/L ALT (4-49) U/L Alkaline Phosphatase (38-126) U/L Total Protein (6.3-8.2) g/dL Albumin (3.5-5.0) g/dL Amylase (30-110) U/L Lipase (23-300) U/L Urine Color Yellow Urine Appearance Clear (Clear) Urine pH 7.5 (5.0-8.0) Ur Specific Hensel 1.008 (1.001-1.035) Urine Protein Negative (Negative) Urine Glucose (UA) Negative (Negative) Urine Ketones Negative (Negative) Urine Blood Negative (Negative) Urine Nitrite Negative (Negative) Urine Bilirubin Negative (Negative) Urine Urobilinogen 2.0 (<2.0) mg/dL Ur Leukocyte Esterase Negative (Negative) Critical Care Time Critical Care Time: Yes Total Critical Care Time: 35 (Patient has a right upper quadrant mass on exam, ultrasound revealed a portal vein thrombus. Patient was admitted and started on heparin.) Disposition Clinical Impression: Portal vein thrombosis, Abdominal mass, right upper quadrant, Cirrhosis of liver Disposition: ADMITTED IP TO THIS [facility] Condition: Stable Is patient prescribed a controlled substance at d/c from ED?: No Decision Date: 07/20/21 Decision Time: 15:01
[2021-07-20] MEDS: ALPRAZolam 0.25 MG TAB PO PRN ×2 (15:44→21:09)
[2021-07-20] MEDS ORDERED: HEPARIN SODIUM 1,000 UN/ML (10ML VL) IV ONE (16:02)
[2021-07-20] MEDS ORDERED: HEPARIN SODIUM 1,000 UN/ML (10ML VL) IV PRN (16:02)
[2021-07-20] MEDS: MORPHINE SULFATE 2 MG/ML SYRINGE IVP PRN ×2 (16:24→21:09)
[2021-07-20] MEDS: HEPARIN SOD,PORK IN 0.45% NACL 25,000 UNIT in 0.45% NACL 1 250ML.BAG IV SCH (16:26)
[2021-07-20] MEDS ORDERED: ALPRAZolam 0.5 MG TAB PO PRN (17:55)
[2021-07-20] MEDS ORDERED: ALBUTEROL HFA INHALER INHALATION PRN (17:55)
[2021-07-20 18:00] LABS: Basophils % (A) 0 %; Eosinophils # (A) 0.1 k/uL (0-0.7); Eosinophils % (A) 1 %; HCT 39.3 % (39.0-53.0); HGB 13.7 gm/dL (13.0-17.5); Hyperchromasia Slight; Lymphocytes # (A) 0.5 k/uL (1.0-4.8); Lymphocytes % (A) 10 %; MCH 30.6 pg (25.0-35.0); MCHC 34.8 g/dL (31.0-37.0); MCV 87.8 fL (80.0-100.0); Mean Platelet Volume 6.9; Monocytes # (A) 0.3 k/uL (0-1.0); Monocytes % (A) 6 %; Neutrophils # (A) 4.5 k/uL (1.3-7.7); Neutrophils % (A) 82 %; Platelet Count 142 k/uL (150-450); RBC 4.47 m/uL (4.30-5.90); WBC 5.5 k/uL (3.8-10.6)
--- NOTE | 2021-07-20 18:06 | P.HPIM ---
History of Present Illness H&P Date: 07/20/21 Chief Complaint: Abdominal pain 61-year-old man with medical history of porphyria cutanea tarda, hepatitis C, history of IV drug abuse in remission for 20 years, nicotine abuse and remission for 1 year, COPD, peripheral vascular disease status post stent to the right leg presented with abdominal pain. Patient says of the last 3 days he's noticed increasing abdominal pain in the context of having had constipation for some time before that. He did have 1 bowel movement this morning, but it was small, but what concerned him the most was that he started to feel a mass in the right upper quadrant of his abdomen. Patient says he initially tried to ignore this, however, a mass felt like it was going and therefore he presented to the emergency room for further evaluation. Patient denies fevers, chills, nausea, vomiting, chest pain, palpitations, syncope, presyncope, numbness/weakness of extremities, hematochezia, hematemesis, melena. Patient underwent CT of the abdomen/pelvis which demonstrated likely mass in the liver as well as portal vein thrombosis; follow-up ultrasound of the right upper quadrant confirmed mass in the liver. Patient has mild thrombocytopenia to 121, mild anemia to 12.6. Liver function tests demonstrated mildly elevated Cash been to 1.6, AST of 76, ALT 15, alkaline phosphatase of 140, total protein of 8.6. Review of Systems All Systems reviewed and pertinent positives and negatives noted in HPI, all oth er symptoms are negative Past Medical History Past Medical History: COPD, Liver Disease, Vascular Disorder Additional Past Medical History / Comment(s): Hepatitis C-treated/cured, has a rare skin condition, lesions with chronic pain especially involving face, PAD, hx.of L inguinal hernia, L groin lipoma, past infections from mediport. History of Any Multi-Drug Resistant Organisms: None Reported Past Surgical History: Appendectomy, Heart Catheterization, Hernia Repair Additional Past Surgical History / Comment(s): EGD, colonoscopy, stent right leg for circulation, mediport & later removed Past Anesthesia/Blood Transfusion Reactions: No Reported Reaction Past Psychological History: Anxiety Smoking Status: Former smoker Past Alcohol Use History: None Reported Past Drug Use History: Marijuana - Past Family History Father Family Medical History: Cancer Additional Family Medical History / Comment(s): Father of pancreatic cancer at the age of 78yrs. Mother Family Medical History: Renal Disease Medications and Allergies Home Medications Medication Instructions Recorded Confirmed Type Albuterol Inhaler [Ventolin Hfa 2 puff INHALATION RT-Q4H PRN 04/26/20 07/20/21 History Inhaler] Ipratropium-Albuterol Nebulize 3 ml INHALATION RT-QID 05/18/21 07/20/21 History [Duoneb 0.5 mg-3 mg/3 ml Soln] ALPRAZolam [Xanax] 0.5 mg PO DAILY PRN 07/20/21 07/20/21 History Budesonide/Glycopyr/Formoterol 2 puff INHALATION RT-BID 07/20/21 07/20/21 History [Breztri Aerosphere Inhaler] Buprenorphine HCl/Naloxone HCl 1 film SL BID 07/20/21 07/20/21 History [Suboxone 8 mg-2 mg Sl Film] Losartan [Cozaar] 25 mg PO DAILY 07/20/21 07/20/21 History Allergies Allergy/AdvReac Type Severity Reaction Status Date / Time hydrocodone [From Vicodin] Allergy Nausea, Verified 07/20/21 15:29 vomiting & rash ibuprofen [From Motrin] Allergy Nausea, Verified 07/20/21 15:29 vomiting & rash Physical Exam Osteopathic Statement: *. No significant issues noted on an osteopathic structural exam other than those noted in the History and Physical/Consult. Vitals: Vital Signs Temp Pulse Resp BP Pulse Ox 07/20/21 16:31 59 L 20 163/80 99 07/20/21 09:57 98.6 F 101 H 18 187/96 97 Intake and Output 07/20/21 07/20/21 07/20/21 06:59 14:59 22:59 Other: Weight 68.039 kg Gen: awake, alert, thin, cachectic HEENT: normocephalic, atraumatic, good hearing acuity, dry mucous membranes, poor dentition Resp: Diminished air exchange, breathing comfortably with no accessory muscle use, diffuse rhonchi CVS: good distal perfusion x 4, regular rate and rhythm without murmurs GI: soft, tenderness to palpation the right upper quadrant, palpable liver : no SPT, no CVAT, rdz catheter not present MSK: no pitting edema, no clubbing Neuro: non-focal, moving all extremities Psych: cooperative, euthymic mood Results CBC & Chem 7: 07/20/21 11:37 07/20/21 11:37 Labs: Abnormal Lab Results - Last 24 Hours (Table) 07/20/21 07/20/21 Range/Units 11:37 11:37 RBC 4.02 L (4.30-5.90) m/uL Hgb 12.6 L (13.0-17.5) gm/dL Hct 35.2 L (39.0-53.0) % Plt Count 121 L D (150-450) k/uL Lymphocytes # 0.4 L (1.0-4.8) k/uL Sodium 133 L (137-145) mmol/L Chloride 94 L (98-107) mmol/L Glucose 120 H (74-99) mg/dL Total Bilirubin 1.6 H (0.2-1.3) mg/dL AST 76 H (17-59) U/L Alkaline Phosphatase 140 H (38-126) U/L Total Protein 8.6 H (6.3-8.2) g/dL Assessment and Plan Assessment: Liver mass Portal vein thrombosis History of hepatitis C -Admit inpatient, telemetry -Heparin drip -Pain control with morphine when necessary -MRI of the abdomen -Patient will require follow up with group teacher for treatment of possible hepatocellular carcinoma COPD without exacerbation -Resume home inhalers 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
[2021-07-20] MEDS ORDERED: IPRATROPIUM-ALBUTEROL 3 ML NEB INHALATION PRN (18:09)
[2021-07-20] MEDS: IPRATROPIUM-ALBUTEROL 3 ML NEB INHALATION SCH (19:38)
[2021-07-20] MEDS ORDERED: hydrALAZINE HCL 25 MG TAB PO STA (22:10)
[2021-07-21] MEDS: NON FORMULARY DRUG (Budesonide/Glycopyr/Formoterol [Breztri Aerosphere Inhaler] 10.7 GM Gm INHALATION SCH (01:22)
[2021-07-21] MEDS: MORPHINE SULFATE 2 MG/ML SYRINGE IVP PRN ×6 (01:33→23:55)
[2021-07-21] MEDS: IPRATROPIUM-ALBUTEROL 3 ML NEB INHALATION SCH ×4 (07:30→20:47)
[2021-07-21 07:34] LABS: Basophils % (A) 0 %; Eosinophils # (A) 0.1 k/uL (0-0.7); Eosinophils % (A) 2 %; HCT 33.7 % (39.0-53.0); Hyperchromasia Slight; Lymphocytes # (A) 0.6 k/uL (1.0-4.8); Lymphocytes % (A) 13 %; MCHC 35.7 g/dL (31.0-37.0); MCV 86.8 fL (80.0-100.0); Monocytes # (A) 0.3 k/uL (0-1.0); Monocytes % (A) 7 %; Neutrophils # (A) 3.1 k/uL (1.3-7.7); Neutrophils % (A) 76 %; Platelet Count 130 k/uL (150-450); RBC 3.88 m/uL (4.30-5.90); RDW 12.9 % (11.5-15.5); WBC 4.1 k/uL (3.8-10.6)
[2021-07-21 07:41] LABS: Partial Thromboplastin Time 51.6 sec (22.0-30.0); Prothrombin Time 10.3 sec (9.0-12.0)
[2021-07-21] MEDS: LOSARTAN 25 MG TAB PO SCH (08:46)
--- NOTE | 2021-07-21 12:42 | P.PN ---
Subjective Progress Note Date: 07/21/21 No new complaints today. Pending MR Abdomen. Objective - Vital Signs Vital signs: Vital Signs Temp 98.5 F 07/21/21 04:37 Pulse 92 07/21/21 11:19 Resp 20 07/21/21 04:37 BP 131/82 07/21/21 04:37 Pulse Ox 92 L 07/21/21 04:37 Intake & Output 07/20/21 07/21/21 07/21/21 18:59 06:59 18:59 Intake Total 27.964 200 58.99 Balance 27.964 200 58.99 Weight 68.039 kg Intake: Intake, IV Titration 27.964 0 58.99 Amount Heparin Sod,Pork in 0.45% 27.964 0 58.99 NaCl 25,000 unit In 0.45 % NaCl 1 250ml.bag @ 18 UNITS/KG/HR 12.247 mls/hr IV .[id number] SHAYY Rx#: [id number] Oral 200 Other: # Voids 1 - Exam Gen: awake, alert, thin, cachectic HEENT: normocephalic, atraumatic, good hearing acuity, dry mucous membranes, poor dentition Resp: Diminished air exchange, breathing comfortably with no accessory muscle use, diffuse rhonchi CVS: good distal perfusion x 4, regular rate and rhythm without murmurs GI: soft, tenderness to palpation the right upper quadrant, palpable liver : no SPT, no CVAT, rdz catheter not present MSK: no pitting edema, no clubbing Neuro: non-focal, moving all extremities Psych: cooperative, euthymic mood - Labs CBC & Chem 7: 07/21/21 06:53 07/20/21 11:37 Labs: Abnormal Lab Results - Last 24 Hours (Table) 07/20/21 07/20/21 07/20/21 Range/Units 11:37 17:02 17:02 RBC 4.02 L (4.30-5.90) m/uL Hgb 12.6 L (13.0-17.5) gm/dL Hct 35.2 L (39.0-53.0) % Plt Count 121 L D 142 L (150-450) k/uL Lymphocytes # 0.4 L 0.5 L (1.0-4.8) k/uL APTT 139.0 H* (22.0-30.0) sec 07/21/21 07/21/21 07/21/21 Range/Units 02:12 06:53 06:53 RBC 3.88 L (4.30-5.90) m/uL Hgb 12.0 L (13.0-17.5) gm/dL Hct 33.7 L (39.0-53.0) % Plt Count 130 L (150-450) k/uL Lymphocytes # 0.6 L (1.0-4.8) k/uL APTT 50.3 H 51.6 H (22.0-30.0) sec Assessment and Plan Assessment: Liver mass Portal vein thrombosis History of hepatitis C -Admit inpatient, telemetry -Heparin drip -Pain control with morphine when necessary -MRI of the abdomen -Patient will require follow up with contact person for treatment of possible hepatocellular carcinoma COPD without exacerbation -Resume home inhalers 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
[2021-07-21] MEDS: HEPARIN SOD,PORK IN 0.45% NACL 25,000 UNIT in 0.45% NACL 1 250ML.BAG IV SCH (13:46)
[2021-07-21 15:11] LABS: Magnesium 2.3 mg/dL (1.5-2.4)
[2021-07-21 16:21] LABS: African American GFR (CKD) 113.7 (60.0-200.0); Albumin 4.1 g/dL (3.8-4.9); Albumin/Globulin Ratio 1.24 (1.60-3.17); Anion Gap 13.1 mmol/L (10.00-18.00); BUN/Creat Ratio 15.63 Ratio (12.00-20.00); Bilirubin, Conjugated 0.44 mg/dL (0.20-0.40); Bilirubin,Unconjugated 0.72 mg/dL (0.20-1.00); Blood Urea Nitrogen 11.6 mg/dL (9.0-27.0); Calcium 9.1 mg/dL (8.7-10.3); Carbon Dioxide 24.4 mmol/L (20.0-27.5); Globulin 3.4 g/dL (1.6-3.3); Non-African American GFR(CKD) 98.1 (60.0-200.0); Potassium 4.2 mmol/L (3.5-5.5); Total Bilirubin 1.2 mg/dL (0.30-1.20); Total Protein 7.5 g/dL (6.2-8.2)
[2021-07-21 20:01] VITALS: RESP 16
[2021-07-22] MEDS: NON FORMULARY DRUG (Budesonide/Glycopyr/Formoterol [Breztri Aerosphere Inhaler] 10.7 GM Gm INHALATION SCH ×3 (02:38→10:41)
[2021-07-22 05:08] VITALS: TEMP 97.7
[2021-07-22] MEDS: MORPHINE SULFATE 2 MG/ML SYRINGE IVP PRN (05:24)
[2021-07-22] MEDS: IPRATROPIUM-ALBUTEROL 3 ML NEB INHALATION SCH ×2 (07:50→11:06)
[2021-07-22 08:31] VITALS: BP 125/80; PULSE 114
[2021-07-22] MEDS: LOSARTAN 25 MG TAB PO SCH (08:31)
[2021-07-22] MEDS: HEPARIN SOD,PORK IN 0.45% NACL 25,000 UNIT in 0.45% NACL 1 250ML.BAG IV SCH (10:40)
--- NOTE | 2021-07-22 11:25 | P.DS ---
Providers Date of admission: 07/20/21 14:41 Expected date of discharge: 07/22/21 Attending physician: Zhane Lewis DO Primary care physician: Deandre Thomas MD Hospital Course: 61-year-old man with medical history of porphyria cutanea tarda, hepatitis C, history of IV drug abuse in remission for 20 years, nicotine abuse and remission for 1 year, COPD, peripheral vascular disease status post stent to the right leg presented with abdominal pain. Liver mass Portal vein thrombosis History of hepatitis C -Admitted inpatient, telemetry. CT A/P demonstrated cirrhotic liver, splenomegaly and f/u RUQ US demonstrated possible mass in the liver, with portal vein thrombus. Pt was started on a heparin gtt, and admitted for MR Abdomen but preferred to complete workup as an outpatient. Pt was instructed to follow up with a hepatology specialist that he had seen previously for his Hepatitis C treatment as soon as possible for imaging of the liver. His heparin was switched to Eliquis on discharge. 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 Occasional marijuana use -Resumed patient's home Suboxone on discharge -Marijuana cessation counseling provided Assessment: Gen: awake, alert, thin, cachectic HEENT: normocephalic, atraumatic, good hearing acuity, dry mucous membranes, poor dentition Resp: Diminished air exchange, breathing comfortably with no accessory muscle use, diffuse rhonchi CVS: good distal perfusion x 4, regular rate and rhythm without murmurs GI: soft, tenderness to palpation the right upper quadrant, palpable liver : no SPT, no CVAT, rdz catheter not present MSK: no pitting edema, no clubbing Neuro: non-focal, moving all extremities Psych: cooperative, euthymic mood Patient Condition at Discharge: Stable Plan - Discharge Summary New Discharge Prescriptions: New Apixaban [Eliquis Starter Pack (for VTE)] 5 - 10 mg PO DIRECTED 30 Days #1 each Continue Albuterol Inhaler [Ventolin Hfa Inhaler] 2 puff INHALATION RT-Q4H PRN PRN Reason: Shortness Of Breath Buprenorphine HCl/Naloxone HCl [Suboxone 8 mg-2 mg Sl Film] 1 film SL BID Ipratropium-Albuterol Nebulize [Duoneb 0.5 mg-3 mg/3 ml Soln] 3 ml INHALATION RT-QID ALPRAZolam [Xanax] 0.5 mg PO DAILY PRN PRN Reason: Anxiety Budesonide/Glycopyr/Formoterol [Breztri Aerosphere Inhaler] 2 puff INHALATION RT-BID Losartan [Cozaar] 25 mg PO DAILY Discharge Medication List Albuterol Inhaler [Ventolin Hfa Inhaler] 2 puff INHALATION RT-Q4H PRN 04/26/20 [History] Ipratropium-Albuterol Nebulize [Duoneb 0.5 mg-3 mg/3 ml Soln] 3 ml INHALATION RT-QID 05/18/21 [History] ALPRAZolam [Xanax] 0.5 mg PO DAILY PRN 07/20/21 [History] Budesonide/Glycopyr/Formoterol [Breztri Aerosphere Inhaler] 2 puff INHALATION RT-BID 07/20/21 [History] Buprenorphine HCl/Naloxone HCl [Suboxone 8 mg-2 mg Sl Film] 1 film SL BID 07/20/21 [History] Losartan [Cozaar] 25 mg PO DAILY 07/20/21 [History] Apixaban [Eliquis Starter Pack (for VTE)] 5 - 10 mg PO DIRECTED 30 Days #1 each 07/22/21 [Rx] Follow up Appointment(s)/Referral(s): Deandre Thomas MD [Primary Care Provider] - 07/25/21 9:30 am Patient Instructions/Handouts: Cirrhosis (DC), Venous Thromboembolism (DC), Blood Thinners (DC) Discharge Disposition: HOME SELF-CARE
== END 2021-07-22 11:57 | disposition home or self-care (01) | DRG 442 ==
LOC: EC 09:40 → 5NMEDONC 14:41
PROVIDERS: ADMIT Internal Medicine; ATTEND Internal Medicine
DX: I81 Portal vein thrombosis (principal); R64 Cachexia; E80.1 Porphyria cutanea tarda; F11.20 Opioid dependence, uncomplicated; K74.60 Unspecified cirrhosis of liver; J44.9 Chronic obstructive pulmonary disease, unspecified; K59.00 Constipation, unspecified; I73.9 Peripheral vascular disease, unspecified; Z68.21 Body mass index [BMI] 21.0-21.9, adult; F41.9 Anxiety disorder, unspecified; D69.6 Thrombocytopenia, unspecified; D64.9 Anemia, unspecified; Z20.822 Contact with and (suspected) exposure to COVID-19; Z71.51 Drug abuse counseling and surveillance of drug abuser; F19.11 Other psychoactive substance abuse, in remission; Z79.899 Other long term (current) drug therapy; Z80.0 Family history of malignant neoplasm of digestive organs; Z87.891 Personal history of nicotine dependence; Z95.820 Peripheral vascular angioplasty status with implants and grafts; Z86.19 Personal history of other infectious and parasitic diseases; Z90.49 Acquired absence of other specified parts of digestive tract; Z88.6 Allergy status to analgesic agent; Z88.5 Allergy status to narcotic agent; Z84.1 Family history of disorders of kidney and ureter
CPT/HCPCS: 36415; 74177; 76705; 80048; 80053; 80076; 81003; 82150; 83690; 83735; 85025; 85610; 85730; 87521; 87635; 94640; 96374; 99291